=== PATIENT | female | born 1955 | race African-American/Black ===

== ENCOUNTER → 2017-06-03 | Outpatient (CLI) | payer OTHER ==
[~2017-06-03] MED LIST: ACCUNEB SO1.25 MG/1; ADVAIR 500-501 EACH INH; ALBUTEROL2.5 MG/31 INH; ALDACTONE50 MG PO; APAP650 PO; ATENOLOL 25 MG25 M1 PO; ATROVENT30 ML NS; AUGMENTIN 875875 M1 PO; AVELOX 400 MG400 MG PO; CARVEDILOL6.25 MG PO; COLACE 100 MG100 MG PO; COLACE100 MG PO; DIFLUCAN150 MG PO; DIOVAN HCT 1601 EACH PO; DIOVAN160 MG PO; DIOVAN40 MG PO; FLAGYL500 MG PO; GLYCOLAX POWDER17 G1 PO; HYDROCODON-ACE1 EAC7 PO; LAMISIL250 MG PO; LASIX 20 MG TAB20 MG PO; LEVAQUIN 500 M500 M2 PO; LEVAQUIN 500 M500 M6 PO; LOSARTAN-HCTZ1 EACH PO; MELOXICAM7.5 MG PO; MULTIVITAMINS PO; NORCO 5-325 TA1 EACH PO; NORTRIPTYLINE H25 M3 PO; PHENERGAN 25 MG25 M1 PO; PREDNISONE 10 M10 M1 PO; PREDNISONE 10 M10 MG PO; PREDNISONE 20 M20 M1 PO; PREDNISONE 5 MG5 M1; PREMARIN0.3 MG PO; PRILOSEC 20 MG20 MG PO; TUSSIONEX PENN473 ML PO; VALSARTAN PO; VOLTAREN TOP; XARELTO10 M1 PO; ZANTAC 150MG T150 M1 PO; ZPAK PO
== END ==
LOC: RAD 11:05
DX: I51.7 Cardiomegaly (principal); J45.40 Moderate persistent asthma, uncomplicated

== ENCOUNTER → 2018-06-05 | Outpatient (CLI) | payer OTHER ==
--- NOTE | 2018-06-06 13:19 | 2DMMODE ---
[facility] [place] [address] 2 D/M-MODE ECHOCARDIOGRAM Name: EDGARDO APARICIO Room #: REG CL RoryRory#: [id number] ������������� Admission: 06/05/18 ������������� Attend Phys: Cuauhtemoc Coronado, Discharge: ��� ������������� ��� Date of : 57 Date of Service: 06/06/18 1319 �� Report #: [id number] �������� ��������������������������������������������[id number] THIS REPORT FOR: //name// APPROVED REPORT Study performed: 06/05/2018 10:16:21 EXAM: Comprehensive 2D, Doppler, and color-flow Echocardiogram Patient Location: Out-Patient BSA: 2.04 HR: 72 bpm BP: 158/100 mmHg Rhythm: NSR Other Information Study Quality: Good Indications CHF, idiopathic cardiomyopathy. Hx: HTN, PE. 2D Dimensions RVDd: 29.40 mm IVSd: 12.04 (7-11mm) LVOT Diam: 20.98 (18-24mm) LVDd: 56.73 mm PWd: 12.23 (7-11mm) Ascending Ao: 41.91 (22-36mm) LVDs: 47.70 (25-40mm) Aortic Root: 36.25 mm Volumes Left Atrial Volume (Systole) Single Plane 4CH: 99.45 mL Single Plane 2CH: 112.69 mL Aortic Valve AoV Peak Nate.: 1.40 m/s AO Peak Gr.: 7.84 mmHg LVOT Max P.51 mmHg LVOT Max V: 1.06 m/s [place] Vmax: 2.62 cm2 Mitral Valve E/A Ratio: 0.7 MV Decel. Time: 287.11 ms MV E Max Nate.: 0.54 m/s MV A Nate.: 0.81 m/s MV PHT: 83.26 ms [facility] [address] [place] [address] 2 D/M-MODE ECHOCARDIOGRAM Name: EDGARDO APARICIO Room #: [facility]#: [id number] ������������� Admission: 06/05/18 ������������� Attend Phys: Cuauhtemoc Coronado, Discharge: ��� ������������� ��� Date of : 57 Date of Service: 06/06/18 1319 �� Report #: [id number] �������� ��������������������������������������������[id number] IVRT: 117.65 ms Pulmonary Valve PV Peak Nate.: 0.92 m/s PV Peak Gr.: 3.40 mmHg Tricuspid Valve TR Peak Nate.: 2.63 m/s RAP Estimate: 5.00 mmHg TR Peak Gr.: 27.66 mmHg PA Pressure: 33.00 mmHg Left Ventricle The left ventricle is normal size. There is global hypokinesis of the left ventricle. Mild concentric left ventricular hypertrophy. Left ventricular systolic function is moderate to severely decreased. LVEF is 25-30%. Mild diastolic dysfunction is present (impaired relaxation pattern). Right Ventricle The right ventricle is normal size. The right ventricular systolic function is low normal. Atria Left atrium is severely dilated. The right atrium size is normal. Aortic Valve Aortic valve leaflets are mildly thickened. Mild aortic regurgitation. There is no aortic valvular stenosis. Mitral Valve Mitral valve leaflets are mildly thickened. Mild mitral annular calcification. Mild mitral regurgitation. No evidence of mitral valve stenosis. Tricuspid Valve The tricuspid valve is normal in structure. Mild tricuspid regurgitation. Estimated PAP is 30-35mmHg. Pulmonic Valve The pulmonary valve is normal in structure. Trace pulmonic regurgitation. Great Vessels The aortic root is normal in size. Ascending aorta is dilated at 4.2cm. IVC is normal in size and collapses >50% with inspiration. [facility] [address] [place] [address] 2 D/M-MODE ECHOCARDIOGRAM Name: EDGARDO APARICIO Room #: REG CL [facility].#: [id number] ������������� Admission: 06/05/18 ������������� Attend Phys: Cuauhtemoc Coronado, Discharge: ��� ������������� ��� Date of : 57 Date of Service: 06/06/18 1319 �� Report #: [id number] �������� ��������������������������������������������[id number] Pericardium There is no pericardial effusion. <Conclusion> Mild concentric left ventricular hypertrophy. LVEF is 25-30%. Left atrium is severely dilated. Mild aortic regurgitation. Mild mitral regurgitation. ��������������������������������������������� <ELECTRONICALLY SIGNED> ���������������������������������������� By: Tonio Ledbetter MD, [facility] ��������������������������������������������� 06/06/189 18 1319 Tonio Ledbetter MD, FACC /INF
== END ==
LOC: CV 07:56
DX: I08.3 Combined rheumatic disorders of mitral, aortic and tricuspid valves (principal); N28.9 Disorder of kidney and ureter, unspecified; I11.0 Hypertensive heart disease with heart failure; I50.9 Heart failure, unspecified; Z86.711 Personal history of pulmonary embolism

== ENCOUNTER 2018-11-24 09:38 | Inpatient (IN) | payer OTHER ==
[~2018-11-24] VITALS: Ht 170.2 cm; Wt 101.1 kg
[2018-11-24 09:38] VITALS: BP 173/118
[2018-11-24 10:45] LABS: HEMATOCRIT 34.6 % (37.0-47.0); HEMOGLOBIN 10.8 gm/dL (12.0-15.0); MCH 27.6 pg (26.0-34.0); MCHC 31.1 g/dL (28.0-37.0); MCV 88.8 fL (80.0-100.0); PLATELET COUNT 234 thou/uL (150-400); RDW 16.8 % (10.5-14.5); WBC 6.7 thou/uL (4.0-11.0)
[2018-11-24 10:54] LABS: ANION GAP 8 mmol/L (7-16); BUN 14 mg/dL (7-18); CALCIUM 9.3 mg/dL (8.5-10.1); CHLORIDE 102 mmol/L (98-107); CO2 29 mmol/L (21-32); CREATININE 1.1 mg/dL (0.6-1.0); GLUCOSE 104 mg/dL (74-106); SODIUM 139 mmol/L (136-145)
[2018-11-24 11:05] LABS: ALBUMIN 3.6 g/dL (3.4-5.0); SGOT 17 U/L (15-37); SGPT 16 U/L (30-65); TOTAL BILIRUBIN 0.3 mg/dL (<0.1-1.0); TOTAL PROTEIN 8.1 g/dL (6.4-8.2); TROPONIN-I <0.06 ng/mL (<0.06)
[2018-11-24 11:08] LABS: ABSOLUTE NEUTROPHILS 1.3 thou/uL (1.4-8.2); ANISOCYTOSIS 1+
[2018-11-24 13:00] VITALS: BP 155/106
[2018-11-24 13:29] VITALS: BP 161/109
--- NOTE | 2018-11-24 13:30 | NUR ---
PT ADMITTED FROM ED FOR CHF. ARRIVED TO UNIT WITH SON. PT ALERT AND ORIENTED X4. DENIES PAIN AND SOA. BP ELEVATED BUT MEDS TO POC SHOULD HELP RESOLVE ELEVATION. VS OTHERWISE STABLE. PT UP WITH ASSISTANCE AT THIS TIME DUE TO POTENTIAL OF MEDS TO DROP BP FAST OR MAKE DIZZY. PT AND SON HAVE BEEN EDUCATED ON POC AND DENY QUESTIONS OR CONCERNS AT THIS TIME.
[2018-11-24] MEDS ORDERED: BUMETANIDE0.25 MG/1 PO (14:43)
[2018-11-24] MEDS ORDERED: BYSTOLIC 5 MG5 M1 PO (14:44)
[2018-11-24] MEDS ORDERED: VENTOLIN HFA 1818 GM INH (14:46)
[2018-11-24] MEDS ORDERED: LEVALBUTER1.25 MG/0. INH (14:47)
[2018-11-24] MEDS ORDERED: TICALAST NASAL1 EACH (14:48)
--- NOTE | 2018-11-24 14:56 | NUR ---
PT C/O SOA AFTER SEVERAL TRIPS TO THE BATHROOM. O2 2LNC PLACED FOR COMFORT. NO DESATURATION NOTED. PT BECAME AGREEABLE TO HAVING BSC AFTER SOA OCCURED. NO DISTRESS NOTED.
[2018-11-24 16:07] VITALS: BP 151/86
--- NOTE | 2018-11-24 17:15 | NUR ---
NO CLINICAL CHANGES FROM PREVIOUS NOTES. PT RESTING AND DENIES QUESTIONS OR CONCERNS REGARDING POC. SON AT BEDSIDE. NO DISTRESS NOTED.
[2018-11-24 19:57] VITALS: BP 157/92
[2018-11-24 20:34] VITALS: BP 157/92
[2018-11-25] VITALS (7 sets, daily range): BP systolic 141–187; BP diastolic 85–102
--- NOTE | 2018-11-25 03:42 | NUR ---
ASSESSMENT CHARTED. VSS. PT REQUEST MELETONIN AND BACLOFEN PRN GIVEN PER EMAR. REFUSING Q2 TURNS STATED COMFORTABLE WILL LET ME KNOW WHEN SHES READY. 4L NC TONIGHT WHEEZY THROUGHOUT, SAME PREVIOUS NIGHT. SLEEPING WELL. GOOD OUTPUT PER MONZON. WILL CONTINUE TO MONITOR AND WITH PO.C
--- NOTE | 2018-11-25 03:45 | NUR ---
ASSESSMENT CHARTED. VSS. PT DENIES CP, SOA, N/V, DIZZINESS. BREATHING TREATMENTS PER RT. SON AT BEDSIDE THROUGHOUT NIGHT. NO COMPLAINTS. SLEEPING WELL THROUGHOUT NIGHT. WILL CONTINUE TO MONITOR AND WITH POC.
[2018-11-25 04:56] LABS: CALCIUM 9.7 mg/dL (8.5-10.1); CREATININE 1.3 mg/dL (0.6-1.0); POTASSIUM 3.6 mmol/L (3.5-5.1)
[2018-11-25 05:21] LABS: HEMATOCRIT 34.5 % (37.0-47.0); HEMOGLOBIN 10.8 gm/dL (12.0-15.0); MCH 27.6 pg (26.0-34.0); MCHC 31.3 g/dL (28.0-37.0); MCV 88.2 fL (80.0-100.0); RBC 3.91 mil/uL (4.20-5.00); WBC 6.1 thou/uL (4.0-11.0)
--- NOTE | 2018-11-25 09:11 | EKG ---
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 : 1955 Requested By: Tani Churchill Order Number: [id number] MD: Riki Hernandes Measurements Intervals [place] Rate: 87 P: 22 [place]: 159 QRS: -10 QRSD: 95 T: 86 QT: 381 QTc: 459 Interpretive Statements Sinus rhythm Nonspecific T wave abnormality Inferior infarct, old Compared to ECG 03/08/2014 17:02:29 No significant changes Electronically Signed On 11-25-2018 9:11:28 CDT by Riki Hernandes [email or web address] <ELECTRONICALLY SIGNED> By: Riki Hernandes MD, [facility] 11/25/1811 3 Riki Hernandes MD, [facility] /EPI
[2018-11-25 12:07] LABS: POTASSIUM 3.4 mmol/L (3.5-5.1)
--- NOTE | 2018-11-25 17:26 | NUR ---
ASSUMED PT CARE AT APPROXIMATELY 0700. PT A&O X4. ASSESSMENT CHARTED. PT'S VITAL SIGNS ARE STABLE. FALL PRECAUTIONS IN PLACE. PT STATED SHE HAD A HEADACHE THROUGHOUT THE DAY. PT RECIEVED ANALGESICS AND THE MEDICATIONS RESOLVED THE PAIN. PT STATED SHE WAS NOT SOB. PT STATED SHE DID NOT HAVE CHEST PAIN. PT'S K DECREASED. DR. LAZAR NOTIFIED. K REPLACEMENT INITIATED. MONITORING K LABS AND FOLLOWING UP WITH ADDITIONAL K LABS. PT DENIES HAVING FURTHER QUESTIONS OR CONCERNS.
--- NOTE | 2018-11-25 18:49 | NUR ---
MULTIPLE UNMEASURED VOID AMOUNTS DUE TO PT PREFERRING TO USE TOILET WITHOUT HAT.
--- NOTE | 2018-11-26 03:52 | NUR ---
ASSESSMENT CHARTED. VSS. PT HAS NO COMPLAINTS. SLEEPING WELL THROUGHOUT NIGHT. TYLENOL GIVEN PRN FOR HEADACHE. PT HOPEFUL TO D/C TODAY. WILL CONTINUE TO MONITOR AND WITH POC.
[2018-11-26 04:45] VITALS: BP 162/98
[2018-11-26 05:21] LABS: CALCIUM 9.3 mg/dL (8.5-10.1); CREATININE 1.2 mg/dL (0.6-1.0); MAGNESIUM 2.2 mg/dL (1.8-2.4)
[2018-11-26 05:25] LABS: CHOLESTEROL 283 mg/dL (<200); HDL CHOLESTEROL 51 mg/dL (>40); LDL CHOLESTEROL 204 mg/dL (<100); TC:HDL 5.5 Ratio (Not establshd); TRIGLYCERIDE 141 mg/dL (<150); VLDL 28 mg/dL (<40)
[2018-11-26 05:46] LABS: SERUM ASSESSMENT Clear
[2018-11-26 08:00] VITALS: BP 158/100
[2018-11-26] MEDS ORDERED: BYSTOLIC20 MG PO (11:53)
[2018-11-26] MEDS ORDERED: PREDNISONE 20 M20 MG PO (11:53)
[2018-11-26] MEDS ORDERED: ALDACTONE50 MG PO (11:53)
[2018-11-26] MEDS ORDERED: CENTRUM SILVER1 EAC4 PO (11:53)
[2018-11-26] MEDS ORDERED: BENICAR20 MG PO (11:53)
[2018-11-26] MEDS ORDERED: K-DUR 20 MEQ T20 MEQ PO (11:53)
[2018-11-26 12:03] VITALS: BP 151/111
[2018-11-26 12:50] VITALS: BP 151/111
--- NOTE | 2018-11-26 13:22 | NUR ---
PT CARE ASSUMED APPROX 0700. PT ALERT AND ORIENTED X4. DENIES PAIN AND SOA. VSS. UP WITH STEADY GAIT. PT TO DISCHARGED AT THIS TIME. DISCHARGE PAPERWORK REVIEWED WITH PT AND HER SON. BOTH DENY QUESTIONS OR CONCERNS REGARDING PAPERWORK AND POST HOSPITAL CARE. IV OUT, TELE OFF. PT'S SON TO PROVIDE TRANSPORTATION HOME. HOSPITAL STAFF TO ESCORT PT OUT TIMELY.
== END 2018-11-26 13:25 | disposition home or self-care (01) | DRG 291 ==
LOC: ER 09:38 → 2N 11:57 → EROBS 11:57 → 2N 13:07 → ENTRNSPT 11-26 13:24 → 2N 11-26 13:25 → EDTRNSPTSTS 11-26 13:28 → CMPTRNSPT 11-26 14:47
PROVIDERS: Emergency Medicine; Internal Medicine; Nurse Practitioner; ADMIT Hospitalist
DX: I11.0 Hypertensive heart disease with heart failure (principal); J96.01 Acute respiratory failure with hypoxia; I50.43 Acute on chronic combined systolic (congestive) and diastolic (congestive) heart failure; I42.9 Cardiomyopathy, unspecified; I27.20 Pulmonary hypertension, unspecified; D63.8 Anemia in other chronic diseases classified elsewhere; E78.5 Hyperlipidemia, unspecified; E66.01 Morbid (severe) obesity due to excess calories; J45.909 Unspecified asthma, uncomplicated; Z86.711 Personal history of pulmonary embolism; Z86.718 Personal history of other venous thrombosis and embolism; Z68.34 Body mass index [BMI] 34.0-34.9, adult; Z79.1 Long term (current) use of non-steroidal anti-inflammatories (NSAID); Z79.899 Other long term (current) drug therapy; Z88.0 Allergy status to penicillin; Z88.5 Allergy status to narcotic agent; Z90.710 Acquired absence of both cervix and uterus; Z90.49 Acquired absence of other specified parts of digestive tract; Z79.01 Long term (current) use of anticoagulants
CPT/HCPCS: 10081

== ENCOUNTER → 2019-12-07 | Outpatient (CLI) | payer OTHER ==
[~2019-12-07] MED LIST changes: +BENICAR20 MG PO; +BUMETANIDE0.25 MG/1 PO; +BYSTOLIC 5 MG5 M1 PO; +BYSTOLIC20 MG PO; +CENTRUM SILVER1 EAC4 PO; +K-DUR 20 MEQ T20 MEQ PO; +LEVALBUTER1.25 MG/0. INH; +PREDNISONE 20 M20 MG PO; +TICALAST NASAL1 EACH; +VENTOLIN HFA 1818 GM INH
== END ==
LOC: RAD 11:28
PROVIDERS: ATTEND Internal Medicine
DX: R06.00 Dyspnea, unspecified (principal); I51.7 Cardiomegaly

== ENCOUNTER 2019-12-10 11:04 | Emergency (ER) | payer OTHER ==
[~2019-12-10] VITALS: Ht 170.2 cm; Wt 86.2 kg
[2019-12-10 11:41] LABS: ABSOLUTE NEUTROPHILS 4.9 thou/uL (1.4-8.2); BASOPHILS 0.8 % (0.0-2.0); EOSINOPHILS 0.2 % (0.0-3.0); HEMOGLOBIN 10.1 gm/dL (12.0-15.0); LYMPHOCYTES 32.3 % (24.0-44.0); MCH 26.2 pg (26.0-34.0); MCHC 30.7 g/dL (28.0-37.0); MCV 85.6 fL (80.0-100.0); MONOCYTES 11.1 % (1.0-8.0); PLATELET COUNT 225 thou/uL (150-400); POLYS 55.6 % (36.0-66.0); RBC 3.86 mil/uL (4.20-5.00); RDW 21.2 % (10.5-14.5); WBC 8.8 thou/uL (4.0-11.0)
[2019-12-10 11:44] LABS: ANION GAP 12 mmol/L (7-16); BUN 27 mg/dL (7-18); CALCIUM 9.2 mg/dL (8.5-10.1); CHLORIDE 104 mmol/L (98-107); CO2 26 mmol/L (21-32); CREATININE 1.8 mg/dL (0.6-1.0); GLUCOSE 108 mg/dL (74-106); POTASSIUM 3.6 mmol/L (3.5-5.1); SODIUM 142 mmol/L (136-145)
[2019-12-10 11:55] LABS: ALBUMIN 3.5 g/dL (3.4-5.0); MAGNESIUM 2.1 mg/dL (1.8-2.4); SGOT 26 U/L (15-37); SGPT 28 U/L (30-65); TOTAL BILIRUBIN 0.7 mg/dL (0.2-1.0); TOTAL PROTEIN 6.8 g/dL (6.4-8.2); TROPONIN-I <0.06 ng/mL (<0.06)
[2019-12-10 11:57] LABS: APTT 23.1 Seconds (24.5-32.8); INR 1.1; PROTIME 11.3 Seconds (9.3-11.4)
[2019-12-10 12:23] LABS: ANISOCYTOSIS 1+; PLATELET ESTIMATE NORMAL; POLYCHROMASIA SLIGHT
[2019-12-10] MEDS ORDERED: ONDANSETRON ODT8 MG PO (13:33)
[2019-12-10] MEDS ORDERED: TRAMADOL 50 MG50 MG PO (13:33)
[2019-12-10 13:56] VITALS: BP 151/113
--- NOTE | 2019-12-10 16:06 | EKG ---
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 : 1955 Requested By: Ben Atkins Order Number: [id number] MD: Jared Cabral Measurements Intervals [place] Rate: 86 P: 22 MD: 164 QRS: -16 QRSD: 88 T: QT: 493 QTc: 590 Interpretive Statements Sinus rhythm Inferior infarct, old Baseline wander in lead(s) V3 Compared to ECG 11/24/2018 09:54:37 T-wave abnormality no longer present Myocardial infarct finding still present Electronically Signed On 12-10-2019 16:06:29 CDT by Jared Cabral [email or web address] <ELECTRONICALLY SIGNED> By: Jared Cabral MD, [facility] 12/10/19 1606 1121 1121 Jared Cabral MD, [facility] /EPI
== END 2019-12-10 13:56 | disposition home or self-care (01) ==
LOC: ER 11:04
PROVIDERS: Emergency Medicine
DX: K21.0 Gastro-esophageal reflux disease with esophagitis (principal); D64.9 Anemia, unspecified; J45.901 Unspecified asthma with (acute) exacerbation; I42.9 Cardiomyopathy, unspecified; R11.2 Nausea with vomiting, unspecified; I27.20 Pulmonary hypertension, unspecified; I12.9 Hypertensive chronic kidney disease with stage 1 through stage 4 chronic kidney disease, or unspecified chronic kidney disease; N18.9 Chronic kidney disease, unspecified; Z86.711 Personal history of pulmonary embolism; Z90.49 Acquired absence of other specified parts of digestive tract; Z90.89 Acquired absence of other organs; Z90.711 Acquired absence of uterus with remaining cervical stump; Z79.899 Other long term (current) drug therapy; Z88.5 Allergy status to narcotic agent; Z88.0 Allergy status to penicillin

== ENCOUNTER → 2019-12-18 | Outpatient (CLI) | payer OTHER ==
[~2019-12-18] MED LIST changes: +ONDANSETRON ODT8 MG PO; +TRAMADOL 50 MG50 MG PO
== END ==
LOC: SJCVC 11:29
PROVIDERS: ATTEND Internal Medicine
DX: R94.31 Abnormal electrocardiogram [ECG] [EKG] (principal); I42.8 Other cardiomyopathies; I12.9 Hypertensive chronic kidney disease with stage 1 through stage 4 chronic kidney disease, or unspecified chronic kidney disease; N18.3 Chronic kidney disease, stage 3 (moderate); E78.5 Hyperlipidemia, unspecified; J45.50 Severe persistent asthma, uncomplicated; Z79.899 Other long term (current) drug therapy

== ENCOUNTER 2020-02-03 06:06 | Emergency (ER) | payer OTHER ==
[~2020-02-03] VITALS: Ht 170.2 cm; Wt 81.7 kg
--- NOTE | 2020-02-03 07:22 | EKG ---
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: F 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 : 1955 Requested By: Don Reid Order Number: [id number] MD: Jared Cabral Measurements Intervals [place] Rate: 76 P: 27 [place]: 175 QRS: -12 QRSD: 102 T: 129 QT: 433 QTc: 487 Interpretive Statements Sinus rhythm Probable left atrial enlargement Inferior infarct, old Lateral leads are also involved Baseline wander in lead(s) V6 Compared to ECG 12/10/2019 11:21:56 No significant changes Electronically Signed On 02-03-2020 7:22:11 WHEELMAN by Jared Cabral [email or web address] <ELECTRONICALLY SIGNED> By: Jared Cabral MD, FACC 02/03/20721 5 5 Jared Cabral MD, FAC /EPI
[2020-02-03 07:29] LABS: ABSOLUTE NEUTROPHILS 4.2 thou/uL (1.4-8.2); BASOPHILS 0.9 % (0.0-2.0); EOSINOPHILS 0.9 % (0.0-3.0); HEMATOCRIT 37.3 % (37.0-47.0); HEMOGLOBIN 11.2 gm/dL (12.0-15.0); LYMPHOCYTES 36.5 % (24.0-44.0); MCH 25.2 pg (26.0-34.0); MCV 84.1 fL (80.0-100.0); MONOCYTES 11.9 % (1.0-8.0); POLYS 49.8 % (36.0-66.0); RBC 4.44 mil/uL (4.20-5.00); RDW 20.6 % (10.5-14.5); WBC 8.5 thou/uL (4.0-11.0)
[2020-02-03 08:05] LABS: ALBUMIN 3.2 g/dL (3.4-5.0); ANION GAP 10 mmol/L (7-16); BUN 43 mg/dL (7-18); CHLORIDE 103 mmol/L (98-107); CO2 27 mmol/L (21-32); GLUCOSE 106 mg/dL (74-106); LIPASE 133 U/L (73-393); POTASSIUM 4.6 mmol/L (3.5-5.1); SGOT 40 U/L (15-37); SGPT 27 U/L (30-65); SODIUM 140 mmol/L (136-145); TOTAL BILIRUBIN 0.9 mg/dL (0.2-1.0); TOTAL PROTEIN 7.1 g/dL (6.4-8.2); TROPONIN-I <0.06 ng/mL (<0.06)
[2020-02-03 08:29] LABS: CALCIUM 9.1 mg/dL (8.5-10.1)
[2020-02-03 08:51] LABS: LARGE PLATELETS FEW; PLATELET COUNT 249 thou/uL (150-400); PLATELET ESTIMATE NORMAL
[2020-02-03 08:52] LABS: ANISOCYTOSIS 1+; POIKILOCYTOSIS 1+
[2020-02-03] MEDS ORDERED: FAMOTIDINE40 MG PO (10:19)
[2020-02-03] MEDS ORDERED: ZOFRAN ODT4 MG PO (10:51)
[2020-02-03] MEDS ORDERED: CARAFATE 1 GM TA1 G1 PO (10:51)
[2020-02-03] MEDS ORDERED: PROTONIX40 M2 PO (10:51)
[2020-02-03 11:11] VITALS: BP 159/116
== END 2020-02-03 11:25 | disposition home or self-care (01) ==
LOC: ER 06:06
PROVIDERS: Emergency Medicine
DX: K21.9 Gastro-esophageal reflux disease without esophagitis (principal); R10.11 Right upper quadrant pain; R06.02 Shortness of breath; J45.909 Unspecified asthma, uncomplicated; Z90.49 Acquired absence of other specified parts of digestive tract; Z90.711 Acquired absence of uterus with remaining cervical stump; Z86.711 Personal history of pulmonary embolism; Z79.899 Other long term (current) drug therapy; Z88.5 Allergy status to narcotic agent; Z88.0 Allergy status to penicillin

== ENCOUNTER → 2020-03-11 | Outpatient (CLI) | payer OTHER ==
[~2020-03-11] MED LIST changes: +CARAFATE 1 GM TA1 G1 PO; +FAMOTIDINE40 MG PO; +PROTONIX40 M2 PO; +ZOFRAN ODT4 MG PO
== END ==
LOC: SJCVCIMAG 10:27
PROVIDERS: ATTEND Internal Medicine
DX: I08.8 Other rheumatic multiple valve diseases (principal); I31.3 Pericardial effusion (noninflammatory); I42.8 Other cardiomyopathies; I11.9 Hypertensive heart disease without heart failure; I42.9 Cardiomyopathy, unspecified; I27.20 Pulmonary hypertension, unspecified

== ENCOUNTER 2020-09-05 19:57 | Inpatient (IN) | payer OTHER ==
[~2020-09-05] VITALS: Ht 170.2 cm; Wt 77.6 kg
[2020-09-05 20:45] LABS: ABSOLUTE NEUTROPHILS 4.9 thou/uL (1.4-8.2); EOSINOPHILS 0.9 % (0.0-3.0); HEMATOCRIT 32.4 % (37.0-47.0); LYMPHOCYTES 19.1 % (24.0-44.0); MCV 90.4 fL (80.0-100.0); MONOCYTES 13.1 % (1.0-8.0); PLATELET COUNT 246 thou/uL (150-400); POLYS 65.9 % (36.0-66.0); RBC 3.58 mil/uL (4.20-5.00); RDW 21.6 % (10.5-14.5); WBC 7.4 thou/uL (4.0-11.0)
[2020-09-05 20:50] LABS: URINE BILIRUBIN NEGATIVE (Negative); URINE BLOOD NEGATIVE (Negative); URINE CLARITY CLEAR; URINE COLOR YELLOW; URINE GLUCOSE-RANDOM* NEGATIVE (Negative); URINE KETONES NEGATIVE (Negative); URINE LEUKOCYTES-REFLEX NEGATIVE (Negative); URINE NITRITE-REFLEX NEGATIVE (Negative); URINE PROTEIN (DIPSTICK) TRACE (Negative); URINE UROBILINOGEN 0.2 E.U./dl (0.2-1.0)
[2020-09-05 20:53] LABS: ANION GAP 12 mmol/L (7-16); BUN 17 mg/dL (7-18); CALCIUM 8.8 mg/dL (8.5-10.1); CHLORIDE 110 mmol/L (98-107); CO2 25 mmol/L (21-32); CREATININE 1.6 mg/dL (0.6-1.0); GLUCOSE 100 mg/dL (74-106); POTASSIUM 3.2 mmol/L (3.5-5.1); SODIUM 147 mmol/L (136-145)
[2020-09-05 21:03] LABS: TROPONIN-I <0.06 ng/mL (<0.06)
[2020-09-05 22:23] VITALS: BP 139/93
[2020-09-05 22:26] VITALS: BP 139/93
[2020-09-05 22:51] VITALS: BP 148/102
[2020-09-05 23:12] VITALS: BP 132/96
[2020-09-06] MEDS ORDERED: BUMEX2 MG PO (00:24)
[2020-09-06] MEDS ORDERED: BYSTOLIC10 MG PO (00:26)
[2020-09-06] MEDS ORDERED: XOPENEX1.25 MG/3 INH (00:30)
--- NOTE | 2020-09-06 02:06 | NUR ---
PT ADMITTED FROM ER FOR CHF EXERCEBATION, ALERT AND ORIENTED, SR ON TELE, EDUCATIN ASSESSMENT, HX AND ASSESSMENT COMPLETED AND CHARTED, ORDERS FOR POTASSIUM REPLACEMENT OBTAINED AND IMPLEMENTED, NEW ORDERS NOTED, WILL CONTINUE TO MONITOR AND FOLLOW POC
[2020-09-06 03:18] VITALS: BP 123/86
[2020-09-06 04:39] LABS: CALCIUM 8.8 mg/dL (8.5-10.1); CREATININE 1.4 mg/dL (0.6-1.0); MAGNESIUM 1.9 mg/dL (1.8-2.4); POTASSIUM 3.1 mmol/L (3.5-5.1)
--- NOTE | 2020-09-06 07:19 | EKG ---
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 : 1955 Requested By: Genaro Grady Order Number: [id number] MD: Jared Cabral Measurements Intervals [place] Rate: 82 P: 32 [place]: 166 QRS: -7 QRSD: 83 T: QT: 382 QTc: 446 Interpretive Statements Sinus rhythm Probable left atrial enlargement Low voltage, extremity leads Compared to ECG 02/03/2020 07:06:49 Low QRS voltage now present Myocardial infarct finding no longer present Electronically Signed On 09-06-2020 7:18:53 CDT by Jared Cabral [email or web address] <ELECTRONICALLY SIGNED> By: Jared Cabral MD, [facility] 09/06/20 0718 51 51 Jared Cabral MD, [facility] /EPI
[2020-09-06] MEDS ORDERED: DEXILANT30 MG PO (07:28)
[2020-09-06 09:00] VITALS: BP 105/71
[2020-09-06 11:48] VITALS: BP 105/67
[2020-09-06 18:58] VITALS: BP 100/71
[2020-09-07 03:42] VITALS: BP 102/66
[2020-09-07 05:30] LABS: CALCIUM 8.4 mg/dL (8.5-10.1); CREATININE 1.3 mg/dL (0.6-1.0); POTASSIUM 3.6 mmol/L (3.5-5.1)
--- NOTE | 2020-09-07 06:31 | NUR ---
PT. ASSESSMENT COMPLETED, PT C/O BILT LE PAIN, PARTIALLY RELIEVED BY MEDICATION. PT SLEPT T/O THE NOC WITH NO ISSUES NOTED. PT ADHEARED TO FLUID RESTRICTION OF 1500ML. BILAT LE EDEMA 4+, PT ON TELE IN NSR. PT REFUSED PROTONIX, HEPARIN Q SHIFT. PT EDUCATED ON THE IMPORTANCE OF MEDICATIONS.
[2020-09-07 07:10] VITALS: BP 97/59
[2020-09-07 12:02] VITALS: BP 114/77
[2020-09-07 14:12] VITALS: BP 112/50
[2020-09-07 16:05] VITALS: BP 120/85
--- NOTE | 2020-09-07 16:41 | NUR ---
PT ALERT AND ORIENTED TIMES FOUR. VSS, SR ON TELE. PT C/O PAIN PRN PAIN MEDICATIONS GIVEN WITH GOOD RELEIF. PT UP WITH ASSIST OF ONE. PT PROGRESSING TOWARDS POC GOALS.
[2020-09-07 20:15] VITALS: BP 117/85
[2020-09-08] VITALS (8 sets, daily range): BP systolic 124–135; BP diastolic 88–99
[2020-09-08 06:10] LABS: CALCIUM 8.4 mg/dL (8.5-10.1); CREATININE 1.2 mg/dL (0.6-1.0); POTASSIUM 3.8 mmol/L (3.5-5.1)
--- NOTE | 2020-09-08 06:53 | HC ---
[facility] [place] [address] CONSULTATION Name: EDGARDO APARICIO Room #: 201-P ADM IN M.R.#: [id number] Admission: 09/05/20 Attend Phys: Venkat Courtney MD Discharge: Date of : 57 Report #: [id number] THIS REPORT FOR: cc: PRIYA GRAY MD, LINDSAY N MD Kerstein, Andrew H. DO ~ DOC #: [id number] KATTY Stephens DO DATE OF SERVICE: 09/06/2020 Psychiatry C-L consultation for decisional capacity and recommendations regarding treatment today on psychosis. PRIMARY CARE PHYSICIAN: Venkat Courtney MD CONSULTING CAREER DEVELOPMENT ENGINEER: Riki Hernandes MD. CONSULTING PSYCHIATRIST: Katty Stephens DO. CHIEF COMPLAINT: "I do not need psychiatry." HISTORY OF PRESENT ILLNESS: This is a 65-year-old black female who was admitted on 09/05/2020 through the Emergency Room to [facility]. She is now on 2 North, which is a coronary care unit. The patient was able to tell me her name, that she was in the hospital for heart disease. She states that she does not want treatments, which are unpleasant to her such as oral or intravenous potassium and she is aware that she could if her heart condition and electrolytes are not appropriately treated. The patient has already been described to me by her nurse as being fully oriented, so I did have a curiosity what her [facility] Mental Status Examination score would be like, the patient scored a total of 11/30. The patient's areas of deficits were relatively widespread. She knew the day of the week and the year. When I asked what state we were physically in, she said [facility] that was the County we were in, but not the state that is suggestive of more of an attentional deficit. Regarding 5 item recall, the patient recalled 3/5 items. In addition, the patient named 14 animals in 1 minute so second highest score, 3/5 items after about 2 minutes delay. She only could do 2 digits in reverse digit span, so 0-2; with clock, she set the all markers inappropriately and the time incorrectly, so 0 credit; she was 2/2 on visual spatial ability of recognizing or placing "X" a triangle, recognizing object and only got one question right on the cued memory at the end. With severe attentional deficits, this is supportive of a delirium picture over dementia. The patient denied suicidal or homicidal ideations. Additional information from ER evaluation, she presented for bilateral leg swelling and exertional dyspnea. She was having trouble getting up the stairs and called 911. [address] [address] CONSULTATION Name: EDGARDO APARICIO Room #: 201-P [facility] IN M.R.#: [id number] Admission: 09/05/20 Attend Phys: Venkat Courtney MD Discharge: Date of : 57 Report #: [id number] PAST MEDICAL HISTORY: Quite complicated including history of pulmonary embolism, has a Noreen filter, anemia, hypertension, severe systolic congestive heart failure, nonischemic cardiomyopathy. EF has been seen as low as 10%, moderate pulmonary hypertension related to PE. PAST SURGICAL HISTORY: Includes appendectomy, cholecystectomy, tonsillectomy, hysterectomy. MEDICATIONS: Noted as famotidine, fluticasone, salmeterol, bumetanide, nasal spray, acetaminophen, docusate, polyethylene glycol, albuterol nebulizer. ALLERGIES: CODEINE, PENICILLIN. SOCIAL HISTORY: Denied tobacco, alcohol or recreational drug use history. REVIEW OF SYSTEMS: From the ER. CONSTITUTIONAL: Denies fever, chills, malaise, or unexplained weight change. Weight 74.84 kilograms, BMI is 29.1. EYES: Denies eye pain, visual change, or discharge. ENT: Denies hearing changes, ear drainage, ear infections, ear pain. NECK: Denies neck pain or neck stiffness. RESPIRATORY: Denies cough, hemoptysis or respiratory distress. Does complain of exertional dyspnea. HEART: Denies chest pain, dyspnea with exertion, or edema. GASTROINTESTINAL: Denies abdominal pain, nausea, vomiting, diarrhea. GENITOURINARY: Denies burning, frequency, dysuria. MUSCULOSKELETAL: Denies back pain, joint pain, or myalgias. Admits to bilateral leg swelling and weakness. SKIN: Denies rash. NEUROLOGIC: Denies weakness, headaches or loss of consciousness. Otherwise, 10-point review of systems negative. EKG showed sinus rhythm, rate of 82. Normal CT interval. LABORATORY DATA: Laboratories from the ER, H and H 10.0 and 32.4, white count 7.4, platelet count 246. Electrolytes today, sodium 146, potassium 3.1, bicarbonate 24, anion gap 14, BUN 15, creatinine 1.4, this is improved from 1.6 yesterday. Estimated GFR 46, glucose 93, calcium 8.8, magnesium 1.9. NT-proBNP 18727, I think that is highest I have seen in my career. TSH 3.009. Additional laboratories from this admission actually does not look like there are any; imaging yesterday, was a chest x-ray which showed severe cardiomegaly without change compared to prior imaging. PHYSICAL EXAMINATION: VITAL SIGNS: Today, temperature 36.7, pulse 78, respirations 18, BP 100/71, O2 [facility] [address] [place] [address] CONSULTATION Name: EDGARDO APARICIO Room #: 201-P ADM IN .R.#: [id number] Admission: 09/05/20 Attend Phys: Venkat Courtney MD Discharge: Date of : 57 Report #: [id number] sat is 100%. GENERAL: On physical exam in hospital, got IV hooked up, in no apparent distress. MENTAL STATUS EXAMINATION: This is a well-developed, ill-appearing black female appearing stated age. Attention impaired. Concentration impaired. Speech - increased rate. mood/affect- elevated, congruent,irritable Thought process - linear and goal directed. Thought content - focused on the present. Denied suicidal or homicidal ideation, auditory, visual, or tactile hallucinations. Mood is irritable, slightly elevated, congruent. Memory is impaired, 3/5 on immediate memory, 1/4 on cued memory. Insight is impaired. Judgment is very limited. Fund of knowledge is diminished. EDUCATIONAL HISTORY: High school education and degree in [employer], unclear exactly when. FAMILY HISTORY: I did not ask her about psychiatric family history. SOCIAL HISTORY: She states she is not . It is just her and her son, looking back to some of her case management, family history is really not reported anywhere. FORMULATION: A 65-year-old black female admitted for shortness of breath, found to be in decompensated congestive heart failure. The patient has a history of noncompliance, outpatient with Dr. [facility] and also other Cardiology practices in the area. DIAGNOSES: At this time delirium secondary to general medical condition, namely decompensated congestive heart failure, electrolyte imbalance. The patient has numerous medical diagnoses including exertional dyspnea, combined systolic, diastolic heart failure, asthma, nonischemic cardiomyopathy, chronic kidney disease, history of DVT, hypertension, hyperlipidemia, anemia, I would add history of pulmonary hypertension. RECOMMENDATIONS: At this time, on the question of capacity to make healthcare living decisions, given the patient's difficulties with attention, executive function, memory, I do not believe the patient has capacity to understand general medical information, recognize reasonable alternatives, recommendations and treatment plan for future care. This is a very interesting consultation as it weighs other factors not just beneficence but autonomy, doing the right thing. I spent a good bit of consultation time on the phone with Dr. Hernandes, also speaking with Dr. Courtney. The patient's noncompliance is longstanding across numerous years and medical practices. There is remote short information dating back to 2011, almost a decade and some instances factors other than the patient being incapacitated need to be weighed in terms of treating her, I think [address] [address] CONSULTATION Name: EDGARDO APARICIO Room #: 201-P ADM IN M.R.#: [id number] Admission: 09/05/20 Attend Phys: Venkat Courtney MD Discharge: Date of : 57 Report #: [id number] in this patient's case forcing her to take potassium for example against her wishes and putting her in restraints to do so and such would probably cause more harm than good in her fragile state. In addition, the patient's son has not been contacted yet. I think family wishes should be taken into consideration as well in terms of breaching her autonomy. Finally, regarding the patient's delirium, I will defer actual prescription of medicine such as Haldol 0.5 mg p.o. or IV, will be 0.5 mg every 8 hours; it will be reasonable; however, again, I think if the patient refuses this medication, get into a physical confrontation including her in restraints, it could worsen her overall medical condition. The psychiatrist certainly acknowledges that the prognosis is guarded to poor and unfortunately even if she has chronic mood illness such as bipolar disorder, schizoaffective disorder when someone in such a decompensated physiologic state, it is difficult to treat. I will follow along with you, Dr. Courtney and I plan to call the patient's son tomorrow and I am sure repeat labs will be done and we will see if her potassium for example is fairly better than it is thought. Time spent on this consultation is greater than 60 minutes, greater than 50% of the time spent on review of the records, coordination of the care. DO KAMERON NewtonK/MICHAELA/IQB <ELECTRONICALLY SIGNED> By: Ktaty Stephens DO 09/08/20 0653 [id number] 0129 Katty Stephens DO /nt
--- NOTE | 2020-09-08 08:16 | NUR ---
ASSUME CARE 1900. PT/VITALS STABLE. DENIES ANY PAIN. GOOD ENDURANCE TO ACTIVITY. SR ON MONITOR WITH NO DISCTRESS NOTED AT NIGHT. ADEQUATE REST NOTED. PT WOULD BENEFIT FROM EDUCATION ON MEDICATIONS AND COMPLIANCE. PT IS VERY NON COMPLIANT WITH POC. LAB WORK TODAY IS IN THE RIGHT DIRECTION WITH K CORRECTING ITSELF TO 3.8. PT REFUSES K REPLACEMENT. ASSESSMENT CHARTED. PROGRESSING MODERATELY WITH POC. PLAN IS TO CONTINUE TO DIURESE PT AND MONITOR ELECTROLYTES. WILL CONTINUE TO MONITOR AND FOLLOW WITH POC
--- NOTE | 2020-09-08 08:49 | NUR ---
met with patient who admits with CHF. Patient resides with son in [facility]. Patient reports flight of steps to enter [facility]. She reports difficlty with steps due to CHF. She plans to move to senior housing in next month. 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 She reports son resides with her and he is seeking housing as he cannot live her in [place] [facility] [place]. Patient plans home with resumption of HH andmeals on wheels to begin in home . casemgt following for dc planning.
--- NOTE | 2020-09-08 12:50 | NUR ---
FAXED CLINICAL UPDATES TO [facility]. WILL CONFIRM THEY RECEIVED. [facility] P [phone]; FAX [phone]
--- NOTE | 2020-09-08 16:52 | NUR ---
PT CARE ASSUMED AT 0700. ASSESSMENTS CHARTED. MEDICATIONS CHARTED. RAC IV. SINUS RHYTHM. BSC; FREQUENT URINATION. DIET: 2GM Na, FLUID RESTRICTION 1500. STAND-BY ASSIST.
[2020-09-09] VITALS (9 sets, daily range): BP systolic 105–138; BP diastolic 54–97
[2020-09-09 05:51] LABS: CALCIUM 8.9 mg/dL (8.5-10.1); CREATININE 1.1 mg/dL (0.6-1.0); POTASSIUM 3.5 mmol/L (3.5-5.1)
[2020-09-09] MEDS ORDERED: BUMEX2 MG PO (07:59)
--- NOTE | 2020-09-09 13:53 | NUR ---
Pt unable to go home today as her son is not available but will be tomorrow. Care discussed with the care team. Nursing reports pt up to bathroom indep but refused to work with therapy this am. [facility] contacted and they can resume care this weekend if dc'd tomorrow. They will request an HOSPICE COMMUNITY LIAISON as well and offer a hospice info visit due to advanced CHF/EF. Pt notes son is working on hud housing [place]men. The pt is not interested in SNF/rehab. Weekend staff will need to confirm dc with [facility] at [phone] and fax the dc instructions and summary to [phone].
--- NOTE | 2020-09-09 18:05 | NUR ---
PT CARE ASSUMED AT 0700. ASSESSMENTS CHARTED. MEDICATIONS CHARTED. RAC IV. SINUS RHYTHM. BSC. DIET: 2 GM Na, FLUID RESTRICTION 1500. PT REFUSES SOME MEDICATIONS REGULARLY. POSSIBLE DISCHARGE TOMORROW.
--- NOTE | 2020-09-10 03:19 | NUR ---
RESTING QUIETLY WITHOUT COMPLAINTS. UP TO BSC WITH STANDBY ASSIST NEEDED. DENIES COMPLAINTS OF SHORTNESS OF AIR OR CHEST PAIN. STATES IS READY TO GO HOME TODAY. WORKING ON GOALS AND PLAN OF CARE FOR NOC. CONTINUE TO ASSES CLOSELY.
[2020-09-10 04:45] VITALS: BP 125/84
[2020-09-10 08:04] VITALS: BP 105/68
[2020-09-10 08:30] VITALS: BP 139/101
--- NOTE | 2020-09-10 11:55 | NUR ---
PT DISCHARGED HOME AT THIS TIME. SHE IS ALERT ORIENTED X4. SHE DENIES PAIN. SHE DID NOT HAVE TRANSPORTATION SO A CAB WAS ORDERED FOR HERE.
== END 2020-09-10 10:03 | disposition home health service (06) | DRG 291 ==
LOC: ER 19:57 → 2N 22:14 → ER 22:52 → 2N 22:52
PROVIDERS: Internal Medicine; Nurse Practitioner; Nurse Practitioner Family; ADMIT Internal Medicine; ATTEND Internal Medicine
DX: I13.0 Hypertensive heart and chronic kidney disease with heart failure and stage 1 through stage 4 chronic kidney disease, or unspecified chronic kidney disease (principal); I50.43 Acute on chronic combined systolic (congestive) and diastolic (congestive) heart failure; N17.0 Acute kidney failure with tubular necrosis; F05 Delirium due to known physiological condition; I42.8 Other cardiomyopathies; J45.909 Unspecified asthma, uncomplicated; I27.20 Pulmonary hypertension, unspecified; E78.5 Hyperlipidemia, unspecified; N18.9 Chronic kidney disease, unspecified; D64.9 Anemia, unspecified; Z66 Do not resuscitate; R41.89 Other symptoms and signs involving cognitive functions and awareness; Z91.14 Patient's other noncompliance with medication regimen; Z86.711 Personal history of pulmonary embolism; Z90.49 Acquired absence of other specified parts of digestive tract; Z90.710 Acquired absence of both cervix and uterus; Z88.6 Allergy status to analgesic agent; Z88.0 Allergy status to penicillin; Z95.828 Presence of other vascular implants and grafts; Z82.49 Family history of ischemic heart disease and other diseases of the circulatory system; Z88.8 Allergy status to other drugs, medicaments and biological substances; Z79.899 Other long term (current) drug therapy
CPT/HCPCS: 10081

== ENCOUNTER 2020-12-27 11:07 | Inpatient (IN) | payer OTHER ==
[~2020-12-27] VITALS: Ht 152.4 cm; Wt 83.9 kg
--- NOTE | ~2020-12-27 | EMS ---
[facility] [address] [place] [address] EMS Patient Care Report Name: EDGARDO APARICIO Room #: 203-P ADM IN M.R.#: [id number] Admission: 12/27/20 Attend Phys: Beth Murdock Discharge: Date of : 57 Report #: [id number] THIS REPORT FOR: //name// Report Transmitted: 12/28/2020 12:36 EMS Care Summary [place], [place]/[facility] Incident [id number] @ 12/27/2020 10:29 Incident Location [address] [place] [address] Patient EDGARDO APARICIO Female, 65 Years 1955 Patient Address [address] [place] [address] Patient History Asthma,Cardiac Murmur, Patient Allergies Penicillin allergy, Patient Medications Albuterol, Chief Complaint SOA Disposition Transported No Lights/[place] Dispatch Reason Chest Pain (Non-Traumatic) Transported To [facility] Narrative M41 DISPATCHED TO CHEST PAIN. M41 AOS AND FOUND A FEMALE PT SITTING ON THE PORCH. PT STATES THAT SHE HAS ASTHMA AND THIS MORNING FELT SOA. THE PT STATES THAT SHE TOOK A BREATHING [facility] [address] [place] [address] EMS Patient Care Report Name: EDGARDO APARICIO Room #: 203-P ADM IN M.R.#: [id number] Admission: 12/27/20 Attend Phys: Beth Murdock Discharge: Date of : 57 Report #: [id number] TREATMENT THIS MORNING BECAUSE HER CHEST HAS BEEN CONGESTED THE PAST 2 DAYS. SHE STATES THAT SHE HAS HAD A COUGH AND BEEN COUGHING UP FLEM. PT STATES THAT HER GERD HAS ALSO BEEN BOTHERING HER. PT STATES HER CHEST HURTS ON INHALATION AND EXHALATION. PT MOVED TO THE COT WITH ASSISTANCE AND INTO THE AMBULANCE. VITALS OBTAINED. 4 LEAD OBTAINED[address] M[address] [facility]. EN ROUTE PT REMAINED STABLE. REPORT GIVEN TO ALISIA ZAMORA. SIGNATURES OBTAINED. TRANSFER OF CARE TOOK PLACE. M41 IN SERVICE. SHAE HICKMAN IMPLEMENTATION ADVISOR Initial Vitals @10:47P: 75,R: 18,BP: 154/117,Pain: 4/10,CO: 0,SpO2: 96, @10:45P: 76,R: 18,BP: 155/113,Pain: 4/10,GCS: 15,SpO2: 97,Revised Trauma: 12, Assessments @10:40MENTAL:Person Oriented,Time Oriented,Event Oriented,Place Oriented,SKIN:HEENT:Head/Face: No Abnormalities,Neck/Airway: No Abnormalities,LUNG SOUNDS:General: No Abnormalities,ABDOMEN:General: No Abnormalities,PELVIS//GI:No Abnormalities,EXTREMITIES:Capillary Refill: Right Upper: < 2 Sec,Left Arm: No Abnormalities,Right Arm: No Abnormalities,Left Leg: No Abnormalities,Right Leg: No Abnormalities,PULSE:Radial: 2+ Normal,NEURO:No Abnormalities, Impression Acute Respiratory Distress (Dyspnea) Procedures @10:40ALS AssessmentResponse: UnchangedSucceeded Timeline 10:28,Call Received 10:28,Dispatch Notified 10:29,Dispatched 10:30,En Route 10:39,On Scene 10:40,At Patient [facility] [address] [place] [address] EMS Patient Care Report Name: EDGARDO APARICIO Room #: 203-P ADM IN M.R.#: [id number] Admission: 12/27/20 Attend Phys: Beth Murdock Discharge: Date of : 57 Report #: [id number] 10:40,ALS Assessment,Response: UnchangedSucceeded, 10:45,BP: 155/113 M,PULSE: 76,RR: 18 R,SPO2: 97 Ox,ETCO2: ,BG: ,PAIN: 4,GCS: 15, 10:47,BP: 154/117 M,PULSE: 75,RR: 18 R,SPO2: 96 Ox,ETCO2: ,BG: ,PAIN: 4,GCS: , 10:49,Depart Scene 11:09,At Destination 11:12,Call Closed Disclaimer v1.1 Copyright 2020 [employer] This EMS Care Summary contains data elements from the applicable legal record (which may be displayed differently). It is designed to provide pertinent information for the following purposes: continuity of care, clinical quality, and state data reporting. The complete legal record is available to ED staff and administrators of the receiving hospital in [employer]'s Patient Tracker. All data is provided "as is."
[~2020-12-27 11:07] MED LIST changes: +BUMEX2 MG PO; +BYSTOLIC10 MG PO; +DEXILANT30 MG PO; +XOPENEX1.25 MG/3 INH
[2020-12-27 11:10] VITALS: BP 163/133
[2020-12-27 11:38] LABS: CALCIUM 9.3 mg/dL (8.5-10.1); CREATININE 1.9 mg/dL (0.6-1.0)
[2020-12-27 11:39] LABS: ABSOLUTE NEUTROPHILS 4.4 thou/uL (1.4-8.2); BASOPHILS 0.9 % (0.0-2.0); EOSINOPHILS 0.8 % (0.0-3.0); HEMATOCRIT 32.9 % (37.0-47.0); HEMOGLOBIN 10.1 gm/dL (12.0-15.0); LYMPHOCYTES 27.1 % (24.0-44.0); MCH 27.4 pg (26.0-34.0); MCHC 30.6 g/dL (28.0-37.0); MCV 89.3 fL (80.0-100.0); MONOCYTES 13.5 % (1.0-8.0); PLATELET COUNT 254 thou/uL (150-400); POLYS 57.7 % (36.0-66.0); POTASSIUM 3.8 mmol/L (3.5-5.1); RBC 3.68 mil/uL (4.20-5.00); RDW 19.6 % (10.5-14.5); WBC 7.6 thou/uL (4.0-11.0)
[2020-12-27 11:48] LABS: ALBUMIN 2.8 g/dL (3.4-5.0); TOTAL BILIRUBIN 1.1 mg/dL (0.2-1.0); TOTAL PROTEIN 7.7 g/dL (6.4-8.2)
[2020-12-27 13:38] LABS: ANISOCYTOSIS 1+
--- NOTE | 2020-12-27 15:33 | EKG ---
[place] [address] [place] [address] ELECTROCARDIOGRAM REPORT Name: EDGARDO APARICIO Room #: 170-11 ADM IN M.R.#: [id number] Admission: 12/27/20 Attend Phys: Beth Murdock Discharge: Date of : 57 Report #: [id number] [facility] ED Test Date: 2020-12-27 Test Time: 11:20:21 Pat Name: EDGARDO APARICIO Department: Room: 170 Gender: F Orthotist Or Prosthetist: JERRY : 1955 Requested By: Emily Reagan Order Number: [id number] MD: Jared Cabral Measurements Intervals [place] Rate: 71 P: 45 IL: 151 QRS: 0 QRSD: 77 T: QT: 498 QTc: 542 Interpretive Statements Sinus rhythm Low voltage, extremity and precordial leads Abnormal R-wave progression, early transition Nonspecific T abnormalities, lateral leads Compared to ECG 09/05/2020 20:52:57 T-wave abnormality now present Prolonged QT interval now present Electronically Signed On 12-27-2020 15:33:27 CDT by Jared Cabral [email or web address] <ELECTRONICALLY SIGNED> By: Jared Cabral MD, FACC 12/27/20 1533 1120 1120 Jared Cabral MD, [facility] /EPI
[2020-12-27 15:35] VITALS: BP 124/83
[2020-12-27 16:03] VITALS: BP 127/85
--- NOTE | 2020-12-27 16:23 | 2DMMODE ---
[facility] [address] [place] [address] 2 D/M-MODE ECHOCARDIOGRAM Name: EDGARDO APARICIO Room #: 170-11 ADM IN .R.#: [id number] Admission: 12/27/20 Attend Phys: Beth Murdock Discharge: Date of : 57 Report #: [id number] THIS REPORT FOR: cc: PRIYA GRAY MD, LINDSAY N MD Lammoglia, Francisco J. MD ~ APPROVED REPORT Study performed: 12/27/2020 15:05:01 EXAM: Comprehensive 2D, Doppler, and color-flow Echocardiogram Patient Location: ER Room #: 11 Status: routine BSA: 1.93 HR: 71 bpm BP: 142/95 mmHg Rhythm: NSR Other Information Study Quality: Good Indications Congestive Heart Failure Cardiomyopathy Chest Pain Hypertension/HDD 2D Dimensions RVDd: 54.36 mm IVSd: 11.12 (7-11mm) LVOT Diam: 22.40 (18-24mm) LVDd: 60.80 mm PWd: 11.34 (7-11mm) Ascending Ao: 38.33 (22-36mm) LVDs: 56.15 (25-40mm) Left Atrium: 43.93 (27-40mm) Aortic Root: 33.55 mm IVC: 33.00 mm Volumes Left Atrial Volume (Systole) Single Plane 4CH: 116.26 mL Single Plane 2CH: 147.62 mL LA ESV Index: 76.00 mL/m2 Aortic Valve AoV Peak Nate.: 1.41 m/s [facility] [place] [address] 2 D/M-MODE ECHOCARDIOGRAM Name: EDGARDO APARICIO Room #: 170-11 ADM IN M.R.#: [id number] Admission: 12/27/20 Attend Phys: Beth Johnson Discharge: Date of : 57 Report #: [id number] AO Peak Gr.: 7.93 mmHg LVOT Max P.62 mmHg LVOT Max V: 0.95 m/s [place] Vmax: 2.66 cm2 AI Vmax: 4.74 m/s AI Lawrence: 2.22 m/s2 AI PHT: 619.11 ms Mitral Valve E/A Ratio: 1.1 MV Decel. Time: 163.88 ms MV E Max Nate.: 0.75 m/s MV A Nate.: 0.68 m/s MV PHT: 47.53 ms IVRT: 143.02 ms Pulmonary Valve PV Peak Nate.: 0.99 m/s PV Peak Gr.: 3.92 mmHg Pulmonary Vein P Vein S: 0.24 m/s P Vein A: 0.15 m/s P Vein D: 0.15 m/s P Vein A Dur.: 96.9 msec P Vein S/D Ratio: 1.60 Tricuspid Valve TR Peak Nate.: 3.76 m/s TR Peak Gr.: 56.50 mmHg PA Pressure: 71.00 mmHg Left Ventricle Left ventricle is dilated. There is severe global hypokinesis of the left ventricle. There is normal left ventricular wall thickness. Left ventricular ejection fraction is severely decreased. LVEF is 15-20%. Grade II - pseudonormal filling dynamics. Right Ventricle Right ventricle is dilated. Right ventricle is hypokinetic. Atria Left atrium is dilated. Right atrium is dilated. Aortic Valve The aortic valve is normal in structure. The Aortic valve is sclerotic. Mild aortic regurgitation. There is no aortic valvular stenosis. [facility] [address] [place] [place] [address] 2 D/M-MODE ECHOCARDIOGRAM Name: EDGARDO APARICIO Room #: 170-11 ADM IN [facility].#: [id number] Admission: 12/27/20 Attend Phys: Beth Johnson Discharge: Date of : 57 Report #: [id number] Mitral Valve The mitral valve is normal in structure. Moderate to severe mitral regurgitation with an eccentric jet No evidence of mitral valve stenosis. Tricuspid Valve The tricuspid valve is normal in structure. There is moderate to severe tricuspid regurgitation. Estimated PAP 71 mmHg. There is severe pulmonary hypertension. Pulmonic Valve The pulmonary valve is normal in structure. Mild pulmonic regurgitation. Great Vessels The aortic root is normal in size. The inferior vena cava is dilated with no inspiratory collapse. Pericardium Trace pericardial effusion. <Conclusion> Left ventricle is dilated. Left ventricle is dilated. There is severe global hypokinesis of the left ventricle. LVEF is 15-20%. Right ventricle is dilated. Right ventricle is hypokinetic. Left atrium is dilated. Right atrium is dilated. The aortic valve is normal in structure. The Aortic valve is sclerotic. Mild aortic regurgitation. The mitral valve is normal in structure. Moderate to severe mitral regurgitation with an eccentric jet The tricuspid valve is normal in structure. There is moderate to severe tricuspid regurgitation. Estimated PAP 71 mmHg. There is severe pulmonary hypertension. The pulmonary valve is normal in structure. The aortic root is normal in size. <ELECTRONICALLY SIGNED> By: Fan Carcamo MD 12/27/20 162 21 21 Fan Carcamo MD /INF
[2020-12-27 20:49] VITALS: BP 111/73
--- NOTE | 2020-12-28 02:57 | NUR ---
ASSUMED PT CARE AT 1900, PT IS AWAKE, ALERT AND ORIENTED, C/O ABDOMINAL PAIN, TYL GIVEN WITH PARTIAL RELIEF, VSS, ASSESSMENTS CHARTED, MEDS GIVEN PER MAY, NO ACUTE DISTRESS, WILL CONTINUE TO MONITOR
[2020-12-28 03:35] VITALS: BP 104/76
[2020-12-28 05:04] LABS: CALCIUM 8.7 mg/dL (8.5-10.1); CREATININE 1.8 mg/dL (0.6-1.0); POTASSIUM 3.8 mmol/L (3.5-5.1)
[2020-12-28 05:13] LABS: ALBUMIN 2.5 g/dL (3.4-5.0)
[2020-12-28 07:15] VITALS: BP 108/76
--- NOTE | 2020-12-28 09:43 | NUR ---
Nutrition: pt seen due to high risk screen for poor intake, weight loss. Admit dx of CHF, SOB. Familiar with pt from admit in August. Generally eats well but voiced decreased appetite due to belly pain, constipation for several days. Weight down only 2# in the past 4 months. Down 36# over 2 years-not significant over time frame. On miralax and colace. Avoids fried foods and follows low Na diet at home. Reviewed 1500 mL Fluid restriction. No interventions at this time. Low risk.
[2020-12-28 11:15] VITALS: BP 117/78
[2020-12-28 15:22] VITALS: BP 127/87
--- NOTE | 2020-12-28 17:03 | NUR ---
ASSUMED CARE AT 0700. PT A/O X 3-4. CALM AND PLESANT THROUGHOUT SHIFT. C/O CONSTIPATION. PRN COLACE AND MIRALAX GIVEN, NO RESULTS THUS FAR. ASSESSMENTS PER CHART. PT HAD HEARTBURN THIS MORNING AFTER EATING BREAKFAST, RELIEVED WITH PROTONIX AND ZOFRAN. DENIES PAIN OTHERWISE. ON 1.5L NC. VSS. SWELLING DECREASING IN BLE. REFUSES SCD'S DUE TO NEUROPATHY. UPDATED ON POC. WILL CONT TO MONITOR AND FOLLOW POC.
[2020-12-28] MEDS ORDERED: INCRUSE ELLI62.5 MCG INH (18:30)
[2020-12-28] MEDS ORDERED: SPIRIVA18 MCG INH (18:32)
[2020-12-28 19:20] VITALS: BP 132/89
--- NOTE | 2020-12-29 03:31 | NUR ---
Assumed pt care at 1900. Pt is alert and oriented. No sign of distress noted. Pt is stable. Denies any pain. Patient is stabel. Fall precaution in place. Assessment completed and documented. Scheduled meds administered to pt. No signs distress noted during the night. Continue to monitor. No further needs at this time.
[2020-12-29 04:35] VITALS: BP 128/89
[2020-12-29 07:25] VITALS: BP 140/91
[2020-12-29 16:08] VITALS: BP 122/88
[2020-12-29 16:41] VITALS: BP 122/88
--- NOTE | 2020-12-29 16:43 | NUR ---
Possible dc home tomorrow. Pt is known to cm from recent admission this summer. She lives with her son in a duplex with no steps. She is indep with gait and adl's. She is being seen by therapy and treated for CHF. She denies need for hh referral at this time. She will f/u with her pcp is desired. She reports her/son are moving into a new place and she does not feel she needs people coming out right now. She has had [facility] in the past. No cm interventions indicated at this time. Will follow along should needs arise.
--- NOTE | 2020-12-29 18:06 | NUR ---
ASSESSMENT CHARTED - MEDS PER MAY - GIVEN MOM ORDERED FOR CO'S OF CONSTIPATION - PT WITH 1 SMALL STOOL THIS AM. GIVEN TYLENOL FOR CO'S OF STOMACH PAIN WITH GOOD RELIEF - PT SLEEPING POST DOSE. UP TO THE BSC. RENE DIET AND FLUIDS WITH NO CO'S OF NAUSEA. APPEARS TO BE RESTING COMFORTABLY AT THE PRESENT TIME.
[2020-12-29 20:15] VITALS: BP 115/82
[2020-12-30 04:45] VITALS: BP 133/88
--- NOTE | 2020-12-30 05:05 | NUR ---
Assumed pt care at 1900. Pt is alert and oriented. No sign of distress noted not in patient. Patient states abdominal pain as well as constipation. Fall precaution in place. Assessment completed and documented. Scheduled meds administered to pt. Pt had a bowel movement during the shift. No acute events through the night. Coninue to monitor. No further needs at this time.
[2020-12-30 06:10] LABS: ALBUMIN 2.7 g/dL (3.4-5.0); CALCIUM 8.9 mg/dL (8.5-10.1); CREATININE 1.4 mg/dL (0.6-1.0); PHOSPHORUS 3.1 mg/dL (2.5-4.9); POTASSIUM 3.2 mmol/L (3.5-5.1)
[2020-12-30 07:45] VITALS: BP 137/87
[2020-12-30] MEDS ORDERED: CARAFATE1 GM/10 ML PO (09:06)
[2020-12-30 10:46] VITALS: BP 122/88
--- NOTE | 2020-12-30 11:37 | NUR ---
ASSESSMENT CHARTED - MEDS PER FATOU - RENE DIET AND FLUIDS. NO CO'S OF PAIN OR NAUSEA - PT HAD BM THIS AM STATES THAT SHE DOES FEEL A PRESSURE IN HER ABDOMEN - DR MADE AWARE BY PATIENT. PT UP IN ROOM STEADY ON FEET. PT HOME THIS AM - INSTRUCTION RE HOME MEDS/ CARE AND FOLLOW UP GIVEN TO PATIENT. STATED UNDERSTANDING OF INSTRUCTION GIVEN. LEFT UNIT VIA WHEELCHAIR - HOME VIA PVT VEHICLE ACCOMPANIED BY FRIEND. NO CO'S AT TIME OF D/C.
[2020-12-30 13:32] VITALS: BP 122/88
--- NOTE | 2020-12-30 13:45 | NUR ---
Pt dc'd home today. Pt still uncertain if she wants HH services. HH orders noted on dc and discussed with the pt. She is agreeable with referral being sent to [facility] whom she is familiar with;however she will talk with them Saturday and decide on whether she wants them to come out. Referral faxed and called to [facility]. They will call her Saturday as well to determine whether to initiate or not.
== END 2020-12-30 11:15 | disposition home health service (06) | DRG 291 ==
LOC: ER 11:07 → EROBS 13:25 → 2N 13:25
PROVIDERS: Student in an Organized Health Care Education/Training Program; ADMIT Hospitalist; ATTEND Hospitalist
DX: I11.0 Hypertensive heart disease with heart failure (principal); J96.00 Acute respiratory failure, unspecified whether with hypoxia or hypercapnia; I50.23 Acute on chronic systolic (congestive) heart failure; J18.9 Pneumonia, unspecified organism; Z20.822 Contact with and (suspected) exposure to COVID-19; I42.8 Other cardiomyopathies; J45.909 Unspecified asthma, uncomplicated; G62.9 Polyneuropathy, unspecified; I27.20 Pulmonary hypertension, unspecified; K59.00 Constipation, unspecified; Z79.899 Other long term (current) drug therapy; Z86.711 Personal history of pulmonary embolism; Z90.49 Acquired absence of other specified parts of digestive tract; Z88.8 Allergy status to other drugs, medicaments and biological substances; Z90.710 Acquired absence of both cervix and uterus; Z95.828 Presence of other vascular implants and grafts; Z88.6 Allergy status to analgesic agent; Z88.0 Allergy status to penicillin
CPT/HCPCS: 10081

== ENCOUNTER 2021-01-04 11:12 | Inpatient (IN) | payer OTHER ==
[2021-01-04] VITALS (12 sets, daily range): BP systolic 108–142; BP diastolic 63–89
[~2021-01-04] VITALS: Ht 170.2 cm; Wt 74.0 kg
[~2021-01-04 11:12] MED LIST changes: +CARAFATE1 GM/10 ML PO; +INCRUSE ELLI62.5 MCG INH; +SPIRIVA18 MCG INH
[2021-01-04 11:30] LABS: RDW 18.5 % (10.5-14.5); WBC 8.1 thou/uL (4.0-11.0)
[2021-01-04 11:32] LABS: ABSOLUTE NEUTROPHILS 5.7 thou/uL (1.4-8.2); BASOPHILS 1.6 % (0.0-2.0); EOSINOPHILS 0.5 % (0.0-3.0); LYMPHOCYTES 19.9 % (24.0-44.0); MCH 28.4 pg (26.0-34.0); MCHC 31.9 g/dL (28.0-37.0); MCV 89.1 fL (80.0-100.0); MONOCYTES 8.6 % (1.0-8.0); PLATELET COUNT 156 thou/uL (150-400); POLYS 69.4 % (36.0-66.0); RBC 1.57 mil/uL (4.20-5.00)
[2021-01-04 11:35] LABS: CALCIUM 8.6 mg/dL (8.5-10.1); CREATININE 0.9 mg/dL (0.6-1.0); HEMOGLOBIN 4.5 gm/dL (12.0-15.0); POTASSIUM 3.6 mmol/L (3.5-5.1)
[2021-01-04 11:46] LABS: ALBUMIN 2.2 g/dL (3.4-5.0); TOTAL BILIRUBIN 0.5 mg/dL (0.2-1.0); TOTAL PROTEIN 5.6 g/dL (6.4-8.2)
[2021-01-04 12:21] LABS: ANISOCYTOSIS 2+
[2021-01-04 14:33] LABS: APTT 23.7 Seconds (24.5-32.8); INR 1.2
[2021-01-04 14:41] LABS: HEMATOCRIT 33.7 % (37.0-47.0)
[2021-01-04 14:42] LABS: HEMOGLOBIN 10.7 gm/dL (12.0-15.0)
[2021-01-04 20:59] LABS: HEMOGLOBIN 5.8 gm/dL (12.0-15.0)
[2021-01-05] VITALS (46 sets, daily range): BP systolic 97–128; BP diastolic 62–88
[2021-01-05 06:27] LABS: EOSINOPHILS 0.9 % (0.0-3.0)
[2021-01-05 06:28] LABS: ABSOLUTE NEUTROPHILS 4.8 thou/uL (1.4-8.2); BASOPHILS 0.9 % (0.0-2.0); LYMPHOCYTES 23.1 % (24.0-44.0); MCH 29.4 pg (26.0-34.0); MCHC 33.2 g/dL (28.0-37.0); MCV 88.5 fL (80.0-100.0); MONOCYTES 10.6 % (1.0-8.0); PLATELET COUNT 108 thou/uL (150-400); POLYS 64.5 % (36.0-66.0); RBC 2.12 mil/uL (4.20-5.00); RDW 19.6 % (10.5-14.5); WBC 7.5 thou/uL (4.0-11.0)
[2021-01-05 06:33] LABS: HEMATOCRIT 18.8 % (37.0-47.0); HEMOGLOBIN 6.2 gm/dL (12.0-15.0)
[2021-01-05 06:56] LABS: CALCIUM 7.9 mg/dL (8.5-10.1); CREATININE 0.9 mg/dL (0.6-1.0); MAGNESIUM 1.7 mg/dL (1.8-2.4); POTASSIUM 3.2 mmol/L (3.5-5.1)
--- NOTE | 2021-01-05 07:21 | NUR ---
PT ADMITTED TO FLOOR AT 1830 01/04 WITH GI BLEED. MULTIPLE DARK RED STOOLS DURING SHIFT. 1 UNIT BLOOD GIVEN FOR CRITICAL HGB. 02 WEANED FROM 5L TO 2L DURING SHIFT. CONTINUE CARE BASED ON PATIENTS PLAN OF CARE.
--- NOTE | 2021-01-05 07:22 | EKG ---
[place] [address] [facility] [place] [address] ELECTROCARDIOGRAM REPORT Name: EDGARDO APARICIO Room #: 236-P ADM IN M.R.#: [id number] Admission: 01/04/21 Attend Phys: Beth Murdock Discharge: Date of : 57 Report #: [id number] [facility] ED Test Date: 2021-01-04 Test Time: 11:25:32 Pat Name: EDGARDO APARICIO Department: Room: 236 Gender: F Research Physiologist: DARBY : 1955 Requested By: Abhijit Allen Order Number: [id number] MD: Jared Cabral Measurements Intervals [place] Rate: 91 P: 38 HI: 119 QRS: -8 QRSD: 91 T: 137 QT: 409 QTc: 504 Interpretive Statements Sinus rhythm Borderline short HI interval Inferior infarct, old Lateral leads are also involved Prolonged QT interval Compared to ECG 12/27/2020 11:20:21 Myocardial infarct finding now present Prolonged QT interval now present T-wave abnormality no longer present Electronically Signed On 01-05-2021 7:22:49 CDT by Jared Cabral [email or web address] <ELECTRONICALLY SIGNED> By: Jared Cabral MD, FACC 01/05/21 0722 1125 1125 Jared Cabral MD, FAC /EPI
--- NOTE | 2021-01-05 07:51 | NUR ---
THIS AM EDUCATION PROVIDED TO PT REGARDING USE OF SCDs. PT VERBALIZED THAT SHE HAD AN IVC FILTER AND THAT SHE ALSO HAD "NERVE ISSUES" ON HER LOWER EXTREMETIES. PT REFUSED TO WEAR SCDs.
--- NOTE | 2021-01-05 10:16 | NUR ---
PATIENT'S , SOHEILA WEBSTER, CALLED FROM [phone] AND HE WAS UPDATED AND EDUCATED ON THE PATIENT'S CONDITION AND PLAN OF CARE.
--- NOTE | 2021-01-05 11:45 | NUR ---
Chart review, DX anemia, GI bleed. Tired to visit with rakesh, she was resting in bed with her eyes closed. She lives at home in duplex with her son stefanie. Has been her in 01/12, tx home. [facility] was set up but rakesh was not sure if she would want hh coming into her new home. No steps to enter. Independent when she is feeling ok. Manage own medication. Will cont following as needed for dc needs.
[2021-01-05 15:09] LABS: HEMATOCRIT 21.4 % (37.0-47.0)
[2021-01-06] VITALS (11 sets, daily range): BP systolic 88–109; BP diastolic 56–67
[2021-01-06 06:19] LABS: ABSOLUTE NEUTROPHILS 2.4 thou/uL (1.4-8.2); EOSINOPHILS 2.8 % (0.0-3.0); HEMATOCRIT 21.5 % (37.0-47.0); HEMOGLOBIN 7.1 gm/dL (12.0-15.0); LYMPHOCYTES 35.7 % (24.0-44.0); MCH 28.7 pg (26.0-34.0); MCHC 32.9 g/dL (28.0-37.0); MONOCYTES 11.7 % (1.0-8.0); PLATELET COUNT 100 thou/uL (150-400); POLYS 48.8 % (36.0-66.0); RBC 2.47 mil/uL (4.20-5.00); RDW 19.5 % (10.5-14.5); WBC 4.9 thou/uL (4.0-11.0)
[2021-01-06 06:45] LABS: CALCIUM 7.8 mg/dL (8.5-10.1); CREATININE 0.9 mg/dL (0.6-1.0); MAGNESIUM 1.6 mg/dL (1.8-2.4)
[2021-01-06 06:48] LABS: POTASSIUM 2.8 mmol/L (3.5-5.1)
--- NOTE | 2021-01-06 08:37 | NUR ---
ASSUMED CARE OF PT AT 0700. DR ROTH CALLED ON CRITICAL LAB VALUE PER DOCUMENTATION. AT 0815 PT REFUSED BENADRYL, TYLENOL AND POTASSIUM TREATMENT. PT VERBALIZED THAT ALL SHE NEEDS IS TO "HAVE A BANANA." DR ROTH NOTIFIED OF PT REFUSAL. WILL CONTACT DIETARY AND REQUEST BANANAS FOR PT PER DR ROTH. WILL CONTINUE TO MONITOR.
--- NOTE | 2021-01-06 09:51 | NUR ---
Checking with cardiology to see if going to have pro life vest? set up for dc, noted in hospitalist notes. Cm called her son [phone], no answer left message requesting a call back.
[2021-01-06 16:18] LABS: HEMATOCRIT 22.3 % (37.0-47.0); HEMOGLOBIN 7.2 gm/dL (12.0-15.0)
--- NOTE | 2021-01-06 17:34 | P ---
[facility] [place] [address] PROCEDURE REPORT Name: EDGARDO APARICIO Room #: 236-P [facility] IN .R.#: [id number] Admission: 01/04/21 Attend Phys: Beth Murdock Discharge: Date of : 57 Report #: [id number] THIS REPORT FOR: cc: PRIYA GRAY MD, LINDSAY N MD McElhinney, Christian C. MD ~ cc: Beth Murdock MD DATE OF SERVICE: 01/04/2021 PROCEDURE PERFORMED: Upper endoscopy with bleeding control. HISTORY OF PRESENT ILLNESS: The patient is a 65-year-old female, who was admitted through the Emergency Room for hematemesis, generalized weakness, and melena. Symptoms began approximately 1-2 days ago, started noticing dark stools yesterday. Admit hemoglobin was 4.5. She has now received 2 units of packed cells. Hemoglobin at this time is 10.7. Plan is for upper endoscopy for further evaluation. DESCRIPTION OF PROCEDURE: The risks and benefits of the procedure were explained to the patient, those risks including but not limited to bleeding, perforation and the risk of sedation. She understood these risks and gave informed consent. Sedation was given using propofol per anesthesia. Next, using a standard Olympus upper endoscope, the scope was placed in the patient's mouth and advanced under direct vision through the esophagus, stomach and into the second portion of the duodenum. The esophagus was normal throughout. The GE junction was normal. In the stomach, there was a fairly large clot with liquid, old blood noted in the fundus. I suctioned most of this away, but it did limit visualization. Next, the scope was then advanced into the gastric antrum, at which point, 2 gastric ulcers were noted prepyloric, 1 with clean white base, the other with an adherent clot. I proceeded to inject this with epinephrine, it did start bleeding. A 2 mL of epinephrine were given and then 7-Dutch bipolar cautery was used. No further bleeding was noted. The scope was passed through the pylorus, the duodenal bulb, first and second portions were all normal. At this point, the scope was then withdrawn and the procedure terminated. The patient tolerated the procedure well. IMPRESSION: 1. Antral prepyloric ulcers, 1 with fresh clot and visible vessel, treated with epinephrine and cauterization. No further bleeding noted at this time. 2. Otherwise, normal upper endoscopy. RECOMMENDATIONS: 1. Observe the patient post-procedure. 2. Continue PPI drip. 3. Continue any NSAIDs or anticoagulation therapy. [address] [address] PROCEDURE REPORT Name: EDGARDO APARICIO Room #: 236-P [facility] IN M.R.#: [id number] Admission: 01/04/21 Attend Phys: Beth Murdock Discharge: Date of : 57 Report #: [id number] 4. Continue to monitor hemoglobin closely. Thank you for allowing me to participate in her care. <ELECTRONICALLY SIGNED> By: Manish Peguero MD 01/06/21 1734 1659 0241 Manish Peguero MD /nt
--- NOTE | 2021-01-06 23:20 | NUR ---
Pt transferred to room 207 with belongings, including cell phone, glasses, and bananas. Report given to John england RN
[2021-01-07] VITALS (7 sets, daily range): BP systolic 80–127; BP diastolic 50–84
--- NOTE | 2021-01-07 05:29 | NUR ---
Pt transferred from ICU approx 2315 via bed by 2 transporters. A/OX4,VSS. C/o abd/headache medicated per EMAR with relief reported. LS coarse and wheezy at times,has a productive cough with white sputum on RA. NSR on telemetry. Up with SBA to BSC. No BM this shift,continent ob bladder. Protonix infusing via left wrist w/o any problems. Resting w/o any distress noted.
--- NOTE | 2021-01-07 09:23 | NUR ---
Assumed care of pt this AM. Pt is A&O x4, on RA. SR w/ PVCs on the monitor. Potassium level low, however pt reports she is allergic to K+. Pt changed to no code, approrpiate wrist band applied to pt. Pt c/o abdominal cramping, rated 10/10. Pt currently denying pain medication until after she finishes eating & will call. Will continue to assess pt needs throughout the day.
[2021-01-07 11:24] LABS: HEMATOCRIT 20.9 % (37.0-47.0)
[2021-01-07 11:25] LABS: POTASSIUM 3.2 mmol/L (3.5-5.1)
[2021-01-07 11:28] LABS: HEMOGLOBIN 6.7 gm/dL (12.0-15.0)
[2021-01-07 18:38] LABS: HEMATOCRIT 24.2 % (37.0-47.0); HEMOGLOBIN 7.7 gm/dL (12.0-15.0)
[2021-01-08 03:24] VITALS: BP 108/56
--- NOTE | 2021-01-08 06:06 | NUR ---
assumed pt care at 1900, pt is awake, alert and oriented, sr on tele, scheduled pain meds given for abdominal pain with relief, remains on protonix gtt, no active bleeding noted, will continue to monitor, will pass on report to day nurse
[2021-01-08 07:12] VITALS: BP 136/88
[2021-01-08 11:06] VITALS: BP 98/63
[2021-01-08 15:08] VITALS: BP 103/69
[2021-01-08 19:50] VITALS: BP 111/76
[2021-01-09 03:50] VITALS: BP 123/89
--- NOTE | 2021-01-09 07:41 | NUR ---
ASSUME CARE 1900. PT/VITALS STABLE. CHRONIC BACK PAIN INDICATED WITH RELIEF FROM TYLENOL ARTHRITIS. UNSTABLE GAIT BUT MODERATE TOLERANCE TO ACTIIVTY. ASSESSMENT CHARTED. PROGRESSING WELL TOWARDS POC. PLAN IS FOR PT/OT TO CONTINUE TO MORK WITH PT/ CONTINUE TO TREAT CHF. WILL CONTINUE TO MONITPR AND FOLLOW WITH POC
[2021-01-09 09:25] VITALS: BP 123/92
[2021-01-09 10:09] LABS: HEMATOCRIT 24.9 % (37.0-47.0)
[2021-01-09 13:23] VITALS: BP 130/94
[2021-01-09 16:00] VITALS: BP 118/80
[2021-01-09 19:33] VITALS: BP 100/66
[2021-01-10] VITALS (8 sets, daily range): BP systolic 107–123; BP diastolic 75–84
--- NOTE | 2021-01-10 07:59 | NUR ---
ASSUME CARE 1900. PT/VITALS STABLE. CHRONIC ARTHRITIC PAIN INDICATED WITH MILD RELIEF FROM TYLENOL. MODERATE TOLERANCE TO ACTIVITY. PT/OT WORKING WITH PT. NO DISTRESS NOTED THROUGH THE SHIFT. SR ON MONITOR. ASSESSMENT CHARTED. PROGRESSING WELL WITH POC. PLAN IS POSSIBLE DISCHARGE HOME TODAY. WILL CONITNUE TO MONITOR AND FOLLOW WITH POC
--- NOTE | 2021-01-10 10:02 | NUR ---
Assumed care of pt this AM. Pt is A&O x4, on RA. Denies any chest pain. Pt reports some abd pain. Pt educated about importance of taking protonix. Pt states that it makes her sick. Gave medication after breakfast & offered other snack to go with, however pt stated she didn't want any of the snacks we have available. Plan to discharge home today. Spoke w/ CM about getting pt a ride home. Will continue to assess needs.
[2021-01-10] MEDS ORDERED: BYSTOLIC 5 MG5 M1 PO (10:24)
[2021-01-10] MEDS ORDERED: CARAFATE 11 GM/10 M1 PO (10:24)
[2021-01-10] MEDS ORDERED: PROTONIX40 M4 PO (10:24)
[2021-01-10] MEDS ORDERED: VENTOLIN HFA 1818 GM INH (10:24)
--- NOTE | 2021-01-10 16:46 | NUR ---
Pt dcing home today and agreeable to HH f/u. [facility] contacted but they can not accept at this time. HH options discussed with the pt. She is agreeable to [facility] if they can accept and they do take her ins plan. Referral faxed and confirmed with Rachel in admissions and they can accept. Pt has needed dme in the home.
== END 2021-01-10 17:35 | disposition home health service (06) | DRG 377 ==
LOC: ER 11:12 → ICU 14:50 → EROBS 14:50 → ICU 19:10 → 2N 01-06 23:15
PROVIDERS: Hospitalist; Nurse Practitioner; Physician Assistant; ADMIT Hospitalist; ATTEND Hospitalist
PROC: 0W3P8ZZ Control Bleeding in Gastrointestinal Tract, Via Natural or Artificial Opening Endoscopic (ICD-10-PCS; principal; 2021-01-04)
PROC: 30233N1 Transfusion of Nonautologous Red Blood Cells into Peripheral Vein, Percutaneous Approach (ICD-10-PCS; principal; 2021-01-04)
DX: K25.4 Chronic or unspecified gastric ulcer with hemorrhage (principal); E43 Unspecified severe protein-calorie malnutrition; J96.00 Acute respiratory failure, unspecified whether with hypoxia or hypercapnia; E46 Unspecified protein-calorie malnutrition; D62 Acute posthemorrhagic anemia; E87.0 Hyperosmolality and hypernatremia; I13.0 Hypertensive heart and chronic kidney disease with heart failure and stage 1 through stage 4 chronic kidney disease, or unspecified chronic kidney disease; R65.10 Systemic inflammatory response syndrome (SIRS) of non-infectious origin without acute organ dysfunction; I50.9 Heart failure, unspecified; N18.9 Chronic kidney disease, unspecified; K21.9 Gastro-esophageal reflux disease without esophagitis; J45.909 Unspecified asthma, uncomplicated; G62.9 Polyneuropathy, unspecified; I25.5 Ischemic cardiomyopathy; Z20.822 Contact with and (suspected) exposure to COVID-19; R53.81 Other malaise; I27.20 Pulmonary hypertension, unspecified; K59.00 Constipation, unspecified; E87.6 Hypokalemia; Z66 Do not resuscitate; Z79.899 Other long term (current) drug therapy; Z88.6 Allergy status to analgesic agent; Z88.0 Allergy status to penicillin; Z88.8 Allergy status to other drugs, medicaments and biological substances; Z86.711 Personal history of pulmonary embolism; Z86.718 Personal history of other venous thrombosis and embolism; Z95.828 Presence of other vascular implants and grafts; Z68.25 Body mass index [BMI] 25.0-25.9, adult; Z28.21 Immunization not carried out because of patient refusal
CPT/HCPCS: 10078; 10081; 62110; 62900; 70005; 85076

== ENCOUNTER 2021-03-03 15:12 | Emergency (ER) | payer OTHER ==
[~2021-03-03] VITALS: Ht 170.2 cm; Wt 72.6 kg
[~2021-03-03 15:12] MED LIST changes: +CARAFATE 11 GM/10 M1 PO; +PROTONIX40 M4 PO
[2021-03-03 16:51] LABS: BASOPHILS 1.3 % (0.0-2.0); EOSINOPHILS 0.6 % (0.0-3.0); HEMATOCRIT 24.3 % (37.0-47.0); HEMOGLOBIN 7.5 gm/dL (12.0-15.0); LYMPHOCYTES 22.4 % (24.0-44.0); MCH 24.9 pg (26.0-34.0); MCHC 30.7 g/dL (28.0-37.0); MCV 81.3 fL (80.0-100.0); PLATELET COUNT 227 thou/uL (150-400); POLYS 59.7 % (36.0-66.0); RBC 2.99 mil/uL (4.20-5.00); RDW 19.7 % (10.5-14.5); WBC 6.3 thou/uL (4.0-11.0)
[2021-03-03 17:52] LABS: CALCIUM 9.2 mg/dL (8.5-10.1); CREATININE 1.2 mg/dL (0.6-1.0); POTASSIUM 3.6 mmol/L (3.5-5.1)
[2021-03-03 17:58] LABS: ALBUMIN 2.9 g/dL (3.4-5.0); TOTAL BILIRUBIN 0.6 mg/dL (0.2-1.0); TOTAL PROTEIN 7.4 g/dL (6.4-8.2)
[2021-03-03 19:25] LABS: ANISOCYTOSIS 1+; HYPOCHROMASIA 2+
[2021-03-03 23:06] VITALS: BP 137/93
--- NOTE | 2021-03-04 12:05 | EKG ---
[facility] [address] [place] [address] ELECTROCARDIOGRAM REPORT Name: EDGARDO APARICIO [id number] Admission: 03/03/21 Attend Phys: Discharge: 03/03/21 Date of : 57 Report #: [id number] [facility] ED Test Date: 2021-03-03 Test Time: 21:47:19 Pat Name: EDGARDO APARICIO Department: Room: Gender: F Rn Embedded: ARYAN : 1955 Requested By: Genaro Grady Order Number: [id number] MD: Riki Hernandes Measurements Intervals [place] Rate: 78 P: 36 AK: 169 QRS: 5 QRSD: 77 T: QT: 474 QTc: 541 Interpretive Statements Sinus rhythm Low voltage, extremity leads Prolonged QT interval Compared to ECG 01/04/2021 11:25:32 Inferior Q waves are less prominent Electronically Signed On 03-04-2021 12:05:20 PETROLOGIST by Riki Hernandes [email or web address] <ELECTRONICALLY SIGNED> By: Riki Hernandes MD, [facility] 03/04/21 1205 2147 46 Riki Hernandes MD, FACC /EPI
== END 2021-03-03 23:18 | disposition home or self-care (01) ==
LOC: ER 15:12
PROVIDERS: Emergency Medicine
DX: R10.11 Right upper quadrant pain (principal); I10 Essential (primary) hypertension; J45.909 Unspecified asthma, uncomplicated; I42.9 Cardiomyopathy, unspecified; G62.9 Polyneuropathy, unspecified; Z90.49 Acquired absence of other specified parts of digestive tract; Z90.89 Acquired absence of other organs; Z90.710 Acquired absence of both cervix and uterus; Z79.51 Long term (current) use of inhaled steroids; Z79.891 Long term (current) use of opiate analgesic; Z79.899 Other long term (current) drug therapy; Z88.6 Allergy status to analgesic agent; Z88.0 Allergy status to penicillin; Z88.8 Allergy status to other drugs, medicaments and biological substances

== ENCOUNTER 2021-03-13 15:06 | Inpatient (IN) | payer OTHER ==
[~2021-03-13] VITALS: Ht 170.2 cm; Wt 88.1 kg
--- NOTE | ~2021-03-13 | EMS ---
[facility] [address] [place] [address] EMS Patient Care Report Name: EDGARDO APARICIO Room #: 216-P ADM IN M.R.#: [id number] Admission: 03/13/21 Attend Phys: Yanira Bryson MD Discharge: Date of : 57 Report #: [id number] THIS REPORT FOR: //name// Report Transmitted: 03/16/2021 12:57 EMS Care Summary [place], [place]/[facility] Incident [id number] @ 03/13/2021 14:29 Incident Location [address] [place] [address] Patient EDGARDO APARICIO Female, 65 Years 1955 Patient Address [address] [place], [place] [id number] Patient History Asthma,Gastric Ulcer,Cardiac Murmur, Patient Allergies Penicillin allergy, Patient Medications Albuterol, Sucralfate, Chief Complaint Edema Disposition Transported No Lights/[place] Dispatch Reason Breathing Problem Transported To [facility] Narrative Patient is in the lobby of her apartment upon EMS arrival. Patient states her ride to her doctor's appointment did not show up. She has been having swelling [facility] [address] [place] [address] EMS Patient Care Report Name: EDGARDO APARICIO Room #: 216-P ADM IN M.R.#: [id number] Admission: 03/13/21 Attend Phys: Yanira Bryson MD Discharge: Date of : 57 Report #: [id number] in legs, stomach and shortness of air. She believes her CHF is acting up. Patient has pain in her stomach. Her SOA is worse when moving. Enroute to the ER the patient is transported with seatbelts secured. No changes. Able to speak in complete sentences. Care to RN. Initial Vitals @14:43R: 18,BP: 124/92,Pain: 6/10,GCS: 15,Revised Trauma: 12, @14:40R: 16,Pain: 6/10, @14:51P: 74,R: 17,BP: 135/91,Pain: 6/10,GCS: 15,Revised Trauma: 12, @14:59GCS: 15,SpO2: 98, Assessments @14:40MENTAL:No Abnormalities,SKIN:HEENT:Head/Face: No Abnormalities,Neck/Airway: No Abnormalities,LUNG SOUNDS:General: No Abnormalities,ABDOMEN:General: No Abnormalities,PELVIS//GI:No Abnormalities,EXTREMITIES:Right Leg: Weakness,Left Leg: Edema,Left Leg: Weakness,Right Leg: Edema,Left Arm: No Abnormalities,Right Arm: No Abnormalities,PULSE:Radial: 2+ Normal,NEURO: Impression Edema Procedures @14:39 ALS Assessment Response: UnchangedSucceeded @14:44 3-Lead ECG Response: UnchangedSucceeded Timeline 14:28,Call Received 14:28,Dispatch Notified 14:29,Dispatched 14:30,En Route 14:35,On Scene 14:36,At Patient 14:39,ALS Assessment,Response: UnchangedSucceeded, 14:40,BP: / M,PULSE: ,RR: 16 R,SPO2: Ox,ETCO2: ,BG: ,PAIN: 6,GCS: , 14:43,BP: 124/92 M,PULSE: ,RR: 18 R,SPO2: Ox,ETCO2: ,BG: ,PAIN: 6,GCS: 15, 14:44,Depart Scene 14:44,3-Lead ECG,Response: UnchangedSucceeded, 14:51,BP: 135/91 M,PULSE: 74,RR: 17 R,SPO2: Ox,ETCO2: ,BG: ,PAIN: 6,GCS: 15, 14:59,BP: / M,PULSE: ,RR: R,SPO2: 98 Ox,ETCO2: ,BG: ,PAIN: ,GCS: 15, 15:02,At Destination 15:18,[place] [address] EMS Patient Care Report Name: EDGARDO APARICIO Room #: 216-P ADM IN [facility]#: [id number] Admission: 03/13/21 Attend Phys: Yanira Bryson MD Discharge: Date of : 57 Report #: [id number] v1.1 Copyright 2020 [employer] This EMS Care Summary contains data elements from the applicable legal record (which may be displayed differently). It is designed to provide pertinent information for the following purposes: continuity of care, clinical quality, and state data reporting. The complete legal record is available to ED staff and administrators of the receiving hospital in [facility]'s Patient Tracker. All data is provided "as is."
--- NOTE | ~2021-03-13 | EMS ---
[facility] [address] [place] [address] EMS Patient Care Report Name: EDGARDO APARICIO Room #: 216-P ADM IN M.R.#: [id number] Admission: 03/13/21 Attend Phys: Arturo Pro MD Discharge: Date of : 57 Report #: [id number] THIS REPORT FOR: //name// Report Transmitted: 03/14/2021 07:53 EMS Care Summary [place], [place]/[facility] Incident [id number] @ 03/13/2021 14:29 Incident Location [address] [place] [address] Patient EDGARDO APARICIO Female, 65 Years 1955 Patient Address [address] [place], [place] [id number] Patient History Asthma,Gastric Ulcer,Cardiac Murmur, Patient Allergies Penicillin allergy, Patient Medications Albuterol, Sucralfate, Chief Complaint Edema Disposition Transported No Lights/[place] Dispatch Reason Breathing Problem Transported To [facility] Narrative Patient is in the lobby of her apartment upon EMS arrival. Patient states her ride to her doctor's appointment did not show up. She has been having swelling [facility] [address] [place] [address] EMS Patient Care Report Name: EDGARDO APARICIO Room #: 216-P ADM IN M.R.#: [id number] Admission: 03/13/21 Attend Phys: Arturo Pro MD Discharge: Date of : 57 Report #: [id number] in legs, stomach and shortness of air. She believes her CHF is acting up. Patient has pain in her stomach. Her SOA is worse when moving. Enroute to the ER the patient is transported with seatbelts secured. No changes. Able to speak in complete sentences. Care to RN. Initial Vitals @14:43R: 18,BP: 124/92,Pain: 6/10,GCS: 15,Revised Trauma: 12, @14:40R: 16,Pain: 6/10, @14:51P: 74,R: 17,BP: 135/91,Pain: 6/10,GCS: 15,Revised Trauma: 12, @14:59GCS: 15,SpO2: 98, Assessments @14:40MENTAL:No Abnormalities,SKIN:HEENT:Head/Face: No Abnormalities,Neck/Airway: No Abnormalities,LUNG SOUNDS:General: No Abnormalities,ABDOMEN:General: No Abnormalities,PELVIS//GI:No Abnormalities,EXTREMITIES:Right Leg: Edema,Left Leg: Weakness,Left Leg: Edema,Right Leg: Weakness,Left Arm: No Abnormalities,Right Arm: No Abnormalities,PULSE:Radial: 2+ Normal,NEURO: Impression Edema Procedures @14:39 ALS Assessment Response: UnchangedSucceeded @14:44 3-Lead ECG Response: UnchangedSucceeded Timeline 14:28,Call Received 14:28,Dispatch Notified 14:29,Dispatched 14:30,En Route 14:35,On Scene 14:36,At Patient 14:39,ALS Assessment,Response: UnchangedSucceeded, 14:40,BP: / M,PULSE: ,RR: 16 R,SPO2: Ox,ETCO2: ,BG: ,PAIN: 6,GCS: , 14:43,BP: 124/92 M,PULSE: ,RR: 18 R,SPO2: Ox,ETCO2: ,BG: ,PAIN: 6,GCS: 15, 14:44,Depart Scene 14:44,3-Lead ECG,Response: UnchangedSucceeded, 14:51,BP: 135/91 M,PULSE: 74,RR: 17 R,SPO2: Ox,ETCO2: ,BG: ,PAIN: 6,GCS: 15, 14:59,BP: / M,PULSE: ,RR: R,SPO2: 98 Ox,ETCO2: ,BG: ,PAIN: ,GCS: 15, 15:02,At Destination 15:18,[place] [address] EMS Patient Care Report Name: EDGARDO APARICIO Room #: 216-P ADM IN [facility]#: [id number] Admission: 03/13/21 Attend Phys: Arturo Pro MD Discharge: Date of : 57 Report #: [id number] v1.1 Copyright 2020 [employer] This EMS Care Summary contains data elements from the applicable legal record (which may be displayed differently). It is designed to provide pertinent information for the following purposes: continuity of care, clinical quality, and state data reporting. The complete legal record is available to ED staff and administrators of the receiving hospital in [facility]'s Patient Tracker. All data is provided "as is."
[2021-03-13 15:10] VITALS: BP 126/91
[2021-03-13 16:00] LABS: ABSOLUTE NEUTROPHILS 4.7 thou/uL (1.4-8.2); BASOPHILS 0.9 % (0.0-2.0); EOSINOPHILS 0.7 % (0.0-3.0); HEMATOCRIT 24.8 % (37.0-47.0); HEMOGLOBIN 7.2 gm/dL (12.0-15.0); LYMPHOCYTES 15.8 % (24.0-44.0); MCH 23.3 pg (26.0-34.0); MCHC 28.9 g/dL (28.0-37.0); MCV 80.7 fL (80.0-100.0); MONOCYTES 14.2 % (1.0-8.0); PLATELET COUNT 288 thou/uL (150-400); POLYS 68.4 % (36.0-66.0); RBC 3.08 mil/uL (4.20-5.00); RDW 19.5 % (10.5-14.5); WBC 6.9 thou/uL (4.0-11.0)
[2021-03-13 16:03] LABS: CALCIUM 8.7 mg/dL (8.5-10.1); CREATININE 1.3 mg/dL (0.6-1.0); POTASSIUM 3.8 mmol/L (3.5-5.1)
[2021-03-13 16:13] LABS: ALBUMIN 2.7 g/dL (3.4-5.0); TOTAL BILIRUBIN 0.7 mg/dL (0.2-1.0); TOTAL PROTEIN 7.1 g/dL (6.4-8.2)
[2021-03-13 17:16] LABS: ANISOCYTOSIS 2+; HYPOCHROMASIA 1+
[2021-03-14 05:56] LABS: HEMATOCRIT 25.3 % (37.0-47.0); HEMOGLOBIN 7.4 gm/dL (12.0-15.0); MCH 23.4 pg (26.0-34.0); MCHC 29.2 g/dL (28.0-37.0); MCV 80.3 fL (80.0-100.0); RBC 3.15 mil/uL (4.20-5.00); RDW 19.7 % (10.5-14.5); WBC 5.6 thou/uL (4.0-11.0)
[2021-03-14 06:08] LABS: CALCIUM 8.6 mg/dL (8.5-10.1); CREATININE 1.1 mg/dL (0.6-1.0); POTASSIUM 3.6 mmol/L (3.5-5.1)
--- NOTE | 2021-03-14 07:18 | EKG ---
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 : 1955 Requested By: Colt Pop Order Number: [id number] MD: Jared Cabral Measurements Intervals [place] Rate: 73 P: 0 WI: 85 QRS: -3 QRSD: 175 T: -64 QT: 411 QTc: 453 Interpretive Statements Sinus rhythm Short WI interval Consider right atrial enlargement LVH with secondary repolarization abnormality Baseline wander in lead(s) V5 Compared to ECG 03/03/2021 21:47:19 Short WI interval now present Left ventricular hypertrophy now present Early repolarization now present Prolonged QT interval no longer present Electronically Signed On 03-14-2021 7:18:38 IN STORE REPRESENTATIVE by Jared Cabral [email or web address] <ELECTRONICALLY SIGNED> By: Jared Cabral MD, FACC 03/14/21 0718 1518 1518 Jared Cabral MD, LOCATED WITHIN [facility] /EPI
[2021-03-14 07:36] VITALS: BP 150/100
[2021-03-14 08:00] VITALS: BP 136/80
[2021-03-14 11:30] VITALS: BP 109/66
[2021-03-14 15:00] VITALS: BP 123/74
[2021-03-14 17:00] VITALS: BP 127/83
--- NOTE | 2021-03-14 18:03 | NUR ---
PATIENT BROUGHT IN THIS MORNING AFTER SHIFT CHANGE. ONE UNIT BLOOD CURRENTLY INFUSING. PATIENT TO HAVE AN EGD ON SATURDAY. FLUID RESTRICTION OF 1500ML. BEDREST AT THIS TIME D/T DIZZINESS SYMPTOMS AND LOW HEMOGLOBIN.
[2021-03-14 19:42] VITALS: BP 122/81
--- NOTE | 2021-03-14 23:19 | NUR ---
PATIENT RESTINGING IN BED JUST FINISHING TRANSFUSION OF 1 UNIT PRBC. PATIENT IS AAOX4. STATES THAT SHE IS DOING WELL BUT HER ARE ACHING. STATES THAT THE SWELLING IN HER LEGS HAS DECREASED OVER THE LAST DAY. SHE HAS YET TO PRODUCE A BM BUT SHE IS PASSING GAS. SHE IS COMPLIANT WITH MEDICATIONS. NO ISSUES WITH EATING OR DRINKING. PATIENT DID URINATE ON HER LENNIE PAD BUT STATES THAT SHE HAD MISSED THE BED ALVARADO. NO S/S OF DISTRESS NOTED. WILL CONTINUE TO MONITOR FOR CHANGES IN PATIENT STATUS.
[2021-03-15 03:32] VITALS: BP 123/96
[2021-03-15 05:18] LABS: RDW 19.4 % (10.5-14.5); WBC 4.9 thou/uL (4.0-11.0)
[2021-03-15 05:20] LABS: HEMATOCRIT 27.4 % (37.0-47.0); HEMOGLOBIN 8.1 gm/dL (12.0-15.0); MCH 23.8 pg (26.0-34.0); MCHC 29.6 g/dL (28.0-37.0); MCV 80.4 fL (80.0-100.0); RBC 3.41 mil/uL (4.20-5.00)
[2021-03-15 06:59] LABS: CALCIUM 8.9 mg/dL (8.5-10.1); CREATININE 1.4 mg/dL (0.6-1.0); POTASSIUM 4.5 mmol/L (3.5-5.1)
--- NOTE | 2021-03-15 07:19 | EKG ---
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 : 1955 Requested By: Riki Hernandes Order Number: [id number] : Jared Cabral Measurements Intervals [place] Rate: 82 P: 41 UT: 206 QRS: -2 QRSD: 72 T: QT: 460 QTc: 538 Interpretive Statements Sinus rhythm Compared to ECG 03/13/2021 15:18:21 Left ventricular hypertrophy no longer present Early repolarization no longer present Electronically Signed On 03-15-2021 7:19:06 HAT SIZER by Jared Cabral [email or web address] <ELECTRONICALLY SIGNED> By: Jared Cabral MD, [facility] 03/15/21718 8 8 Jared Cabral MD, FACC /EPI
[2021-03-15 09:06] VITALS: BP 129/98
[2021-03-15 16:43] VITALS: BP 149/111
--- NOTE | 2021-03-15 18:12 | NUR ---
ASSUMED PATIENTV CARE AT 0700. A/O X4. UP WITH STANDBY ASSISTED TO BSC. WILL NPO AFTER MIDNIGHT TO GAVE GI PROCEDURE IN AM.
[2021-03-15 19:28] VITALS: BP 145/105
[2021-03-15 20:42] VITALS: BP 146/106
[2021-03-16 04:35] VITALS: BP 127/88
[2021-03-16 05:15] LABS: HEMATOCRIT 25.6 % (37.0-47.0); HEMOGLOBIN 7.8 gm/dL (12.0-15.0); WBC 5.6 thou/uL (4.0-11.0)
[2021-03-16 05:17] LABS: MCH 24.4 pg (26.0-34.0); MCHC 30.5 g/dL (28.0-37.0); MCV 79.8 fL (80.0-100.0); RBC 3.21 mil/uL (4.20-5.00); RDW 19.6 % (10.5-14.5)
[2021-03-16 05:22] LABS: ALBUMIN 2.4 g/dL (3.4-5.0); CALCIUM 8.8 mg/dL (8.5-10.1); CREATININE 1.2 mg/dL (0.6-1.0); TOTAL BILIRUBIN 0.3 mg/dL (0.2-1.0); TOTAL PROTEIN 6.4 g/dL (6.4-8.2)
[2021-03-16 06:11] LABS: POTASSIUM 3.4 mmol/L (3.5-5.1)
[2021-03-16 08:54] VITALS: BP 128/83
[2021-03-16] MEDS ORDERED: CEFDINIR300 MG PO (09:36)
[2021-03-16] MEDS ORDERED: BAYER CHEWABLE81 MG PO (09:36)
[2021-03-16] MEDS ORDERED: BUMETANIDE 1 MG1 M1 PO (09:36)
--- NOTE | 2021-03-16 10:57 | NUR ---
DNR. A/O X 4. ROOM AIR. NPO SINCE MIDNIGHT FOR EGD TODAY. ROOM AIR. SR ON TELE. 3+ BILATERAL LEG/FEET EDEMA. 2+ PULSES. MIN ABD PAIN 2/10. CONT BLADDER. INCONT STOOL-LOOSE, USES BEDPAN. RIGHT UPPER AND RIGHT FOREARM PIV. IV ABT DOXY-TOLERATING WELL. IV IRON TOLERATING WELL.
[2021-03-16 12:12] VITALS: BP 128/83
--- NOTE | 2021-03-16 12:13 | NUR ---
Pt known to from recent admissions in December this year. She is still on service with [facility] and wants to resume this at dc. Raina aware of her admission and notified of likely dc later today. Pt has needed dme in place at home but will need a ride home this afternoon as she does not have transport. She is on room air. W/c van door to door ride arranged [facility] for 4:30 pickup to facilitate dc home. DC orders will need to be faxed to Raina ANNE at [phone] later today.
[2021-03-16 12:21] VITALS: BP 127/86
[2021-03-16 13:55] VITALS: BP 128/83
[2021-03-16 16:38] VITALS: BP 144/99
--- NOTE | 2021-03-21 12:06 | PATH ---
[facility] [address] [place] [address] PATHOLOGY RPT PROCEDURE Name: EDGARDO APARICIO Room #: 216-P [facility] IN M.R.#: [id number] Admission: 03/13/21 Date of : 57 Discharge: 03/16/21 Report #: [id number] Path Case #: [id number] [facility] Accession Number: [id number] . 01 Material submitted: . cecum - CECAL POLYP . 01 Clinical history: . ESOPHAGOGASTRODUODENOSCOPY, COLONOSCOPY EPIGASTRIC ULCER, ABDOMINAL PAIN, RECTAL BLEED GASTRIC ULCER, POLYPS, HEMORRHOIDS . 02 Diagnosis: Large bowel "cecal polyp", biopsy: - Tubular adenoma; negative for high-grade dysplasia and malignancy. (MLK:pit; 03/21/2021) QTP 03/21/2021 0740 Local . 02 Electronically signed: . Terri Ruiz MD, Pathologist NPI- [id number] . 01 Gross description: . Received in formalin labeled "Marilyn, Edgardo, cecal polyp" are multiple madrid-brown soft tissue fragments measuring in aggregate 2.7 x 0.9 x 0.3 cm. The specimen is submitted entirely in A1. ([facility]; 03/17/2021) GZA/GZA 03/17/2021 0947 Local . 02 Pathologist provided ICD-10: D12.0 . 02 CPT . 063107 Specimen Comment: A courtesy copy of this report has been sent to [phone] Specimen Comment: [phone], Specimen Comment: Report sent to , DR GRAY / DR ROTH Performed at: 01 [facility] [address] [id number] MD Hitesh Burk MD Phone: [phone] Performed at: 02 [facility] [address] [id number] MD Landon Negron MD Phone: [phone]
== END 2021-03-16 16:30 | disposition home health service (06) | DRG 291 ==
LOC: ER 15:06 → 2N 20:57 → EROBS 20:57 → 2N 03-14 07:49
PROVIDERS: Emergency Medicine; Internal Medicine; Nurse Practitioner; Nurse Practitioner Family; ADMIT Hospitalist; ATTEND Hospitalist
PROC: 30233N1 Transfusion of Nonautologous Red Blood Cells into Peripheral Vein, Percutaneous Approach (ICD-10-PCS; principal; 2021-03-14)
PROC: 0DBH8ZZ Excision of Cecum, Via Natural or Artificial Opening Endoscopic (ICD-10-PCS; 2021-03-16)
PROC: 0DJ08ZZ Inspection of Upper Intestinal Tract, Via Natural or Artificial Opening Endoscopic (ICD-10-PCS; 2021-03-16)
DX: I13.0 Hypertensive heart and chronic kidney disease with heart failure and stage 1 through stage 4 chronic kidney disease, or unspecified chronic kidney disease (principal); I50.23 Acute on chronic systolic (congestive) heart failure; K25.4 Chronic or unspecified gastric ulcer with hemorrhage; N17.9 Acute kidney failure, unspecified; D62 Acute posthemorrhagic anemia; R53.81 Other malaise; Z66 Do not resuscitate; N18.30 Chronic kidney disease, stage 3 unspecified; R91.8 Other nonspecific abnormal finding of lung field; E87.6 Hypokalemia; J45.909 Unspecified asthma, uncomplicated; I42.8 Other cardiomyopathies; I27.20 Pulmonary hypertension, unspecified; I08.1 Rheumatic disorders of both mitral and tricuspid valves; K64.8 Other hemorrhoids; K63.5 Polyp of colon; G62.9 Polyneuropathy, unspecified; Z20.822 Contact with and (suspected) exposure to COVID-19; Z86.711 Personal history of pulmonary embolism; Z90.49 Acquired absence of other specified parts of digestive tract; Z87.11 Personal history of peptic ulcer disease; Z90.710 Acquired absence of both cervix and uterus; Z79.899 Other long term (current) drug therapy; Z95.828 Presence of other vascular implants and grafts; Z79.51 Long term (current) use of inhaled steroids; Z88.1 Allergy status to other antibiotic agents; Z88.0 Allergy status to penicillin; Z88.8 Allergy status to other drugs, medicaments and biological substances; Z86.718 Personal history of other venous thrombosis and embolism
CPT/HCPCS: 10081; 62110; 62900; 70005